=== PATIENT | male | born 1950 | race Caucasian/White ===

== ENCOUNTER 2019-09-13 16:55 | Inpatient (IN) ==
[2019-09-13] MEDS ORDERED: ONDANSETRON INJ 2 MG/ML 2 ML VIAL IV STA (17:23)
[2019-09-13] MEDS ORDERED: KETOROLAC TROMETHAMINE 15 MG/ML VIAL IV STA (17:23)
[2019-09-13] MEDS ORDERED: SODIUM CHLORIDE 0.9% 1000ML 1,000 ML IV ONE (17:23)
[2019-09-13 17:54] LABS: INR 1.1 (0.9-1.1); Partial Thromboplastin Ratio 1.1; Partial Thromboplastin Time 28.8 Seconds (21.0-31.0)
[2019-09-13 17:59] LABS: Alanine Aminotransferase 23 U/L (12-78); Aspartate Aminotransferase 13 U/L (15-37); BUN Creatinine Ratio 16.2 (10-20); Bilirubin Direct < 0.1 mg/dl (0-0.2); Blood Urea Nitrogen 21 mg/dl (7-18); Calcium 9.8 mg/dl (8.5-10.1); Carbon Dioxide 26 mmol/L (21-32); Chloride 105 mmol/L (98-107); Creatinine Clr Calc Pharmacy 56.7 ml/min; Est GFR (African American) 64.4; Est GFR (Non-African American) 55.5; Glucose 124 mg/dl (70-99); Lipase 126 U/L (73-393); Potassium 3.6 mmol/L (3.5-5.1); Sodium 138 mmol/L (136-145)
[2019-09-13 18:00] LABS: Appearance Urine Clear (Clear); Bacteria Urine Automated Negative (Negative); Bilirubin Urine Negative (Negative); Blood Urine 3+ (Negative); Color Urine Yellow; Epithelial Cell Urine Auto 0-5 /lpf (0-5); Glucose Urine UA Negative (Negative); Ketones Urine Negative (Negative); Leukocyte Esterase Urine Negative (Negative); Nitrite Urine Negative (Negative); Protein Urine Negative (Negative); RBC Urine Automated >30 /hpf (0-4); Specific Gravity Urine 1.023 (1.000-1.030); Urobilinogen Urine Negative (Negative)
[2019-09-13 18:01] LABS: Alkaline Phosphatase 96 U/L (45-117); Bilirubin,Total 0.6 mg/dl (0.2-1); Total Protein 7.8 gm/dl (6.4-8.2)
--- NOTE | 2019-09-13 18:12 | CT Scan Report ---
CT abd pelvis wo con CLINICAL HISTORY: 69 years-old Male presenting with R flank pain, concern for kidney stones. TECHNIQUE: Multidetector CT of the abdomen and pelvis was performed without the use of intravenous co ntrast. IV contrast: None. One or more dose lowering techniques were used consistent with the princip les of ALA (as low as reasonably achievable), including automatic exposure control, mA or kV adjust ment to individual patient size, and/or use of iterative reconstruction. COMPARISON: None. CT DOSE (mGy.cm): The estimated cumulative dose is 613.26 mGy.cm. FINDINGS: Nuclear Criticality Safety Engineer topogram: Unremarkable. Lung bases: Normal heart size. Coronary artery calcification. No pericardial or pleural effusion. Min imal dependent changes likely atelectasis. Liver: Normal morphology. Normal density. Well-defined hypodense lesions likely hepatic cysts. Biliary: No gross biliary ductal dilatation allowing for noncontrast technique. Gallbladder contains gallstones. Mild apparent gallbladder wall thickening may in part be due to motion artifact. The gall bladder is not significantly distended. Pancreas: Normal noncontrast appearance. Spleen: Normal noncontrast appearance. Adrenal glands: Normal noncontrast appearance. Kidneys and ureters: Moderate bilateral perinephric fat infiltration. Few parapelvic cysts noted on t he right. Mild right pelviectasis with an extra renal pelvis. Trace right urothelial thickening may b e present. The right ureter is minimally distended in comparison to the left though no calculus is ev ident. Normal noncontrast appearance of the renal parenchyma. No nephrolithiasis or hydronephrosis. Bladder: Circumferential bladder wall thickening. Pelvic organs: Prostate enlargement likely secondary to benign prostatic hyperplasia. Bowel: Diverticulosis of the proximal to mid sigmoid colon as well as the descending colon without wa ll thickening or pericolonic inflammatory change. Scattered colonic diverticula are also noted in the right colon predominantly in the proximal transverse colon. The appendix is not visualized. No bowel obstruction. Peritoneal cavity: No free fluid or intraperitoneal gas. Lymph nodes: No gross lymphadenopathy allowing for noncontrast technique. Vasculature: Atherosclerosis of the normal caliber abdominal aorta. Abdominal wall: Fat-containing left inguinal hernia. Multiple fat-containing ventral hernias along th e lateral margin of a prosthetic mesh prior ventral hernia repair. There is also a fat-containing her sony at the right inferior margin of the prior hernia repair. Musculoskeletal: Normal. IMPRESSION: 1. No nephrolithiasis or hydronephrosis. 2. Subtle urothelial thickening on the right and minimal distention of the right ureter. This could either suggest recent passage of a calculus, reflux uropathy, upper tract infection, or a flaccid león al collecting system. Correlate with urinalysis. 3. Chronic bladder outlet obstruction in the setting of prostatomegaly. 4. Cholelithiasis with apparent gallbladder wall thickening though the appearance may be due to thien on artifact. A right upper quadrant ultrasound is recommended as cholecystitis cannot be excluded. 5. Diverticulosis coli. No diverticulitis. 6. Multiple fat-containing hernias. No evidence of strangulation. The report will be called/faxed according to standard departmental protocol. ACT 112: Negative or not required by law. Electronically signed by: Johnny Delcid M.D. 09/13/2019 6:11 PM
[2019-09-13 18:27] LABS: Basophils # (auto) 0.02 K/uL (0-0.2); Basophils % (auto) 0.2 %; Eosinophils # (auto) 0.06 K/uL (0-0.5); Eosinophils % (auto) 0.5 %; Hematocrit (blood only) 44.5 % (42-52); Hemoglobin 15.4 g/dL (14.0-18.0); Immature Granulocytes # (auto) 0.03 K/uL (0.00-0.02); Immature Granulocytes % (auto) 0.3 %; Lymphocytes # (auto) 0.79 K/uL (1.2-3.4); Mean Corpuscular Hgb Conc 34.6 g/dL (32-36); Mean Corpuscular Volume 89.7 fL (80-100); Mean Platelet Volume 10.1 fL (7.4-10.4); Monocytes # (auto) 0.97 K/uL (0.11-0.59); Monocytes % (auto) 8.6 %; Neutrophils # (auto) 9.39 K/uL (1.4-6.5); Neutrophils % (auto) 83.4 %; Platelet Count 302 K/uL (130-400); RDW Coefficient of Variation 12.2 % (11.5-14.5); RDW Standard Deviation 39.7 fL (36.4-46.3); Red Blood Count 4.96 M/uL (4.7-6.1); White Blood Count 11.26 K/uL (4.8-10.8)
--- NOTE | 2019-09-13 19:16 | Ultrasound Report ---
ULTRASOUND RIGHT UPPER QUADRANT ABDOMEN CLINICAL HISTORY: Right upper quadrant abdominal pain. COMPARISON STUDY: Abdominal CT performed the same day 09/13/2019. TECHNIQUE: Real-time, grayscale, and color flow sonography of the right upper quadrant of the abdomen was performed. Images are reviewed in the transverse and longitudinal planes. FINDINGS: Liver: The liver is normal in size and echotexture. There is no intrahepatic biliary ductal dilatatio n. A 1.8 cm simple cyst is noted in the left lobe. The main portal vein is patent. Gallbladder: There are shadowing calcified gallstones. The gallbladder wall is mildly thickened measu ring up to 4 mm. There is no pericholecystic fluid. A sonographic Wilkes's sign is reportedly absent. The common bile duct measures up to 0.5 cm in diameter. Pancreas: Not visualized due to overlying bowel gas. Right kidney: Survey images of the right kidney demonstrate normal size and echotexture. There is no hydronephrosis. Ascites: None. IMPRESSION: 1. Cholelithiasis with a mildly thickened gallbladder wall. A sonographic Wilkes's sign is reportedly absent and there findings are equivocal for acute cholecystitis. The CT findings remain concerning, and if there is strong clinical concern for acute cholecystitis a nuclear hepatobiliary scan could be considered. 2. There is no intra or extrahepatic biliary ductal dilatation. ACT 112: Negative or not required by law. Electronically signed by: Giovani Gaviria M.D. 09/13/2019 7:14 PM
--- NOTE | 2019-09-13 20:23 | Emergency Department Note ---
Entered by Chani Persaud acting as a scribe for Joshua Brush History of Present Illness General Chief complaint: Flank Pain Stated complaint: FLANK PAIN, NAUSEA Time Seen by Provider: 09/13/19 17:10 Source: patient History of Present Illness Provider complaint: Flank Pain Onset (ago): day(s) 5 Location: abdomen (Lower) and right Maximum Pain Intensity: 8 Relieved By: + none Exacerbated By: + none Associated symptoms: + denies other symptoms (Dysuria, hematuria, diarrhea, melena) and + nausea/vomiting (Positive nausea. Negative vomiting. ) The patient is a 69 year old male who presents to the Emergency Room with complaints of right flank pain that began about 5 days ago. Pain radiates into his right upper and right lower quadrants. The patient states that his pain is not relieved nor exacerbated by anything specific. The patient reports experiencing nausea but denies any vomiting. The patient denies experiencing any dysuria, hematuria, diarrhea, or melena. The patient notes that on Tuesday night he was experiencing cramping of his upper abdomen closer to his chest. The patient also mentioned that he had his appendix removed and has a history of hypertension and hyperlipidemia. Home Medications Home Medications Medication Instructions Recorded Confirmed Type atorvastatin [Lipitor] 20 mg PO HS 09/13/19 09/13/19 History cholecalciferol (vitamin D3) 1,000 unit PO QAM 09/13/19 09/13/19 History [Vitamin D3] lisinopril-hydrochlorothiazide 1 tab PO QAM 09/13/19 09/13/19 History [Zestoretic] Allergies Allergy/AdvReac Type Severity Reaction Status Date / Time No Known Allergies Allergy Unverified 09/13/19 18:14 Past Med/Surg History Medical History Hyperlipidemia Hypertension Surgical History History of appendectomy Family History Other Family history non-contributory Social History Feels Safe at Home: Yes Smoking Status: Never smoker Review of Systems See HPI for pertinent positives & negatives. and A total of 10 systems reviewed and were otherwise negative Physical Exam Vital Signs Vital Signs - 24 hr 09/13/19 17:06 09/13/19 18:05 09/13/19 19:13 Temperature 36.9 C Temperature Source Oral Pulse Rate 89 Pulse Rate [Finger] 78 91 H Respiratory Rate 20 17 18 Respiratory Effort / Characteristics Non-Labored Spontaneous Respiratory Depth Normal Normal Respiratory Pattern Regular Blood Pressure 157/80 H Blood Pressure [Left Arm] 132/68 147/70 H Blood Pressure Mean 105 Blood Pressure Mean [Left Arm] 89 95 Pulse Oximetry 97 95 97 Oxygen Delivery Method Room Air Room Air Room Air Sepsis Recent Fever Within 48 Hours No Sepsis Action Taken by Nursing No Action Required GENERAL: He is oriented to person, place, and time. He appears well-developed and well-nourished. He does not appear distressed. HENT: Exam performed. - Head: Normocephalic and atraumatic. - Right Ear: External ear normal. No mastoid tenderness. - Left Ear: External ear normal. No mastoid tenderness. - Mouth/Throat: The oropharynx is clear and moist. No trismus in the jaw. No dental abscesses or uvula swelling. No oropharyngeal exudate or tonsillar abscesses. EYES: Conjunctivae and EOM are normal. Pupils are equal, round, and reactive to light. Right eye exhibits no discharge. Left eye exhibits no discharge. No scleral icterus. NECK: Normal range of motion. Neck supple. No JVD present. No spinous process tenderness present. No carotid bruit present. No rigidity. No tracheal deviation and normal range of motion present. No Brudzinski's sign and no Kernig's sign noted. CV: Normal rate, regular rhythm, normal heart sounds and intact distal pulses. There is no peripheral edema. Palpable radial pulses bue. PULM/CHEST: Effort normal and breath sounds normal. No respiratory distress. No stridor. He has no wheezes. He has no rales. - Chest Wall: He exhibits no tenderness. ABD: The abdomen is soft. Bowel sounds are normal. He has no distension. No mass is present. Right sided CVA tenderness. There is no rebound, no guarding, no Wilkes's sign and no tenderness at McBurney's point. Rovsig negative. MUSC/SKEL: Normal range of motion. There is no peripheral edema, tenderness or deformity. LYMPH: No cervical adenopathy. NEURO: He is alert and oriented to person, place, and time. He has normal strength. No cranial nerve deficit or sensory deficit. Coordination and gait normal. GCS eye subscore is 4. GCS verbal subscore is 5. GCS motor subscore is 6. Cerebellar tests wnl. SKIN: Skin is warm and dry. He is not diaphoretic. PSYCH: He has a normal mood and affect. Behavior is normal. Judgment and thought content normal. Course Course 1712: Past medical records reviewed. The patient was evaluated in room C07. A complete history and physical exam was performed. 1827: I reevaluated the patient and the patient states that his pain and nausea are gone after receiving IV Toradol and Zofran. Vital signs stable and labs are within normal limits except for 3+ blood in his urine. CT scan of the abdomen/pelvis showed no kidney stones but does show urethral thickening which could represent a passed kidney stone which I believe is the case. CT scan also showed Cholelithiasis and an US was recommended to rule out cholecystitis, which we will do. 1924: Vital signs stable. Patient continues to report no pain. No pain on palpation of the right upper quadrant at this time. Ultrasound is equivocal for acute cholecystitis, HIDA scan was recommended. I spoke with Dr. Jaquez- General Surgery about the patient's case and he agreed to be on consult. He recommends of the patient get a HIDA scan in the morning and someone from his team will evaluate the patient. I spoke with Dr. Ac- Hospitalist about the patient's case and he will accept the patient for further evaluation. Administered Medications Discontinued Medications Sodium Chloride (Nss 1000ml) 1,000 mls @ 999 mls/hr IV .Q1H1M ONE Stop: 09/13/19 18:23 Last Infusion: 09/13/19 18:41 Dose: 0 mls/hr Documented by: [id number] Admin: 09/13/19 17:43 Dose: 999 mls/hr Documented by: [id number] Ketorolac Tromethamine (Toradol) 15 mg IV NOW STA Stop: 09/13/19 17:24 Last Admin: 09/13/19 17:43 Dose: 15 mg Documented by: [id number] Ondansetron HCl (Zofran) 4 mg IV NOW STA Stop: 09/13/19 17:24 Last Admin: 09/13/19 17:43 Dose: 4 mg Documented by: [id number] Medical Decision Making Medical Records Attestation: I reviewed the patient's medical records. Home Medications Current Medication List: was personally reviewed by me Laboratory Data Attestation: I reviewed the patient's lab results. Result diagrams: 09/13/19 17:34 09/13/19 17:34 Lab Results 09/13/19 09/13/19 09/13/19 Range/Units 17:34 17:34 17:34 WBC 11.26 H (4.8-10.8) K/uL RBC 4.96 (4.7-6.1) M/uL Hgb 15.4 (14.0-18.0) g/dL Hct 44.5 (42-52) % MCV 89.7 (80-100) fL MCH 31.0 (25-34) pg MCHC 34.6 (32-36) g/dL RDW Std Deviation 39.7 (36.4-46.3) fL RDW Coeff of Graham 12.2 (11.5-14.5) % Plt Count 302 (130-400) K/uL MPV 10.1 (7.4-10.4) fL Immature Gran % (Auto) 0.3 % Neut % (Auto) 83.4 % Lymph % (Auto) 7.0 % Cuming % (Auto) 8.6 % Eos % (Auto) 0.5 % Baso % (Auto) 0.2 % Immature Gran # (Auto) 0.03 H (0.00-0.02) K/uL Neut # (Auto) 9.39 H (1.4-6.5) K/uL Lymph # (Auto) 0.79 L (1.2-3.4) K/uL Cuming # (Auto) 0.97 H (0.11-0.59) K/uL Eos # (Auto) 0.06 (0-0.5) K/uL Baso # (Auto) 0.02 (0-0.2) K/uL PT 11.0 (9.0-12.0) Seconds INR 1.1 (0.9-1.1) APTT 28.8 (21.0-31.0) Seconds PTT Ratio 1.1 Sodium 138 (136-145) mmol/L Potassium 3.6 (3.5-5.1) mmol/L Chloride 105 (98-107) mmol/L Carbon Dioxide 26 (21-32) mmol/L Anion Gap 7.0 (3-11) BUN 21 H (7-18) mg/dl Creatinine 1.31 (0.6-1.4) mg/dl Est Cr Clr Drug Dosing 56.7 ml/min Est GFR ( Amer) 64.4 Est GFR (Non-Af Amer) 55.5 BUN/Creatinine Ratio 16.2 (10-20) Glucose 124 H (70-99) mg/dl Calcium 9.8 (8.5-10.1) mg/dl Total Bilirubin 0.6 (0.2-1) mg/dl Direct Bilirubin < 0.1 (0-0.2) mg/dl AST 13 L (15-37) U/L ALT 23 (12-78) U/L Alkaline Phosphatase 96 (45-117) U/L Total Protein 7.8 (6.4-8.2) gm/dl Albumin 4.0 (3.4-5.0) gm/dl Lipase 126 (73-393) U/L Urine Color Urine Appearance (Clear) Urine pH (4.5-7.5) Ur Specific Pe[place] (1.000-1.030) Urine Protein (Negative) Urine Glucose (UA) (Negative) Urine Ketones (Negative) Urine Blood (Negative) Urine Nitrite (Negative) Urine Bilirubin (Negative) Urine Urobilinogen (Negative) Ur Leukocyte Esterase (Negative) Urine WBC (Auto) (0-5) /hpf Urine RBC (Auto) (0-4) /hpf U Hyaline Cast (Auto) (0-5) /lpf U Epithel Cells (Auto) (0-5) /lpf Urine Bacteria (Auto) (Negative) 09/13/19 Range/Units 17:34 WBC (4.8-10.8) K/uL RBC (4.7-6.1) M/uL Hgb (14.0-18.0) g/dL Hct (42-52) % MCV (80-100) fL MCH (25-34) pg MCHC (32-36) g/dL RDW Std Deviation (36.4-46.3) fL RDW Coeff of Graham (11.5-14.5) % Plt Count (130-400) K/uL MPV (7.4-10.4) fL Immature Gran % (Auto) % Neut % (Auto) % Lymph % (Auto) % Cuming % (Auto) % Eos % (Auto) % Baso % (Auto) % Immature Gran # (Auto) (0.00-0.02) K/uL Neut # (Auto) (1.4-6.5) K/uL Lymph # (Auto) (1.2-3.4) K/uL Cuming # (Auto) (0.11-0.59) K/uL Eos # (Auto) (0-0.5) K/uL Baso # (Auto) (0-0.2) K/uL PT (9.0-12.0) Seconds INR (0.9-1.1) APTT (21.0-31.0) Seconds PTT Ratio Sodium (136-145) mmol/L Potassium (3.5-5.1) mmol/L Chloride (98-107) mmol/L Carbon Dioxide (21-32) mmol/L Anion Gap (3-11) BUN (7-18) mg/dl Creatinine (0.6-1.4) mg/dl Est Cr Clr Drug Dosing ml/min Est GFR ( Amer) Est GFR (Non-Af Amer) BUN/Creatinine Ratio (10-20) Glucose (70-99) mg/dl Calcium (8.5-10.1) mg/dl Total Bilirubin (0.2-1) mg/dl Direct Bilirubin (0-0.2) mg/dl AST (15-37) U/L ALT (12-78) U/L Alkaline Phosphatase (45-117) U/L Total Protein (6.4-8.2) gm/dl Albumin (3.4-5.0) gm/dl Lipase (73-393) U/L Urine Color Yellow Urine Appearance Clear (Clear) Urine pH 5.0 (4.5-7.5) Ur Specific Peoa 1.023 (1.000-1.030) Urine Protein Negative (Negative) Urine Glucose (UA) Negative (Negative) Urine Ketones Negative (Negative) Urine Blood 3+ H (Negative) Urine Nitrite Negative (Negative) Urine Bilirubin Negative (Negative) Urine Urobilinogen Negative (Negative) Ur Leukocyte Esterase Negative (Negative) Urine WBC (Auto) 1-5 (0-5) /hpf Urine RBC (Auto) >30 H (0-4) /hpf U Hyaline Cast (Auto) 1-5 (0-5) /lpf U Epithel Cells (Auto) 0-5 (0-5) /lpf Urine Bacteria (Auto) Negative (Negative) Imaging Data Radiologist's Impression: Radiology results as stated below per my review and the radiologist's interpretation: CT abd pelvis wo con CLINICAL HISTORY: 69 years-old Male presenting with R flank pain, concern for kidney stones. TECHNIQUE: Multidetector CT of the abdomen and pelvis was performed without the use of intravenous contrast. IV contrast: None. One or more dose lowering techniques were used consistent with the principles of ALARA (as low as reasonably achievable), including automatic exposure control, mA or kV adjustmen t to individual patient size, and/or use of iterative reconstruction. COMPARISON: None. CT DOSE (mGy.cm): The estimated cumulative dose is 613.26 mGy.cm. FINDINGS: Laborer Plumbing topogram: Unremarkable. Lung bases: Normal heart size. Coronary artery calcification. No pericardial or pleural effusion. Minimal dependent changes likely atelectasis. Liver: Normal morphology. Normal density. Well-defined hypodense lesions likely hepatic cysts. Biliary: No gross biliary ductal dilatation allowing for noncontrast technique. Gallbladder contains gallstones. Mild apparent gallbladder wall thickening may i n part be due to motion artifact. The gallbladder is not significantly distended. Pancreas: Normal noncontrast appearance. Spleen: Normal noncontrast appearance. Adrenal glands: Normal noncontrast appearance. Kidneys and ureters: Moderate bilateral perinephric fat infiltration. Few parapelvic cysts noted on the right. Mild right pelviectasis with an extra renal pelvis. Trace right urothelial thickening may be present. The right ureter is minimally distended in comparison to the left though no calculus is evident. Normal noncontrast appearance of the renal parenchyma. No nephrolithiasis or hydronephrosis. Bladder: Circumferential bladder wall thickening. Pelvic organs: Prostate enlargement likely secondary to benign prostatic hyperplasia. Bowel: Diverticulosis of the proximal to mid sigmoid colon as well as the descending colon without wall thickening or pericolonic inflammatory change. Scattered colonic diverticula are also noted in the right colon predominantly in the proximal transverse colon. The appendix is not visualized. No bowel obstruction. Peritoneal cavity: No free fluid or intraperitoneal gas. Lymph nodes: No gross lymphadenopathy allowing for noncontrast technique. Vasculature: Atherosclerosis of the normal caliber abdominal aorta. Abdominal wall: Fat-containing left inguinal hernia. Multiple fat-containing ventral hernias along the lateral margin of a prosthetic mesh prior ventral hernia repair. There is also a fat-containing hernia at the right inferior margin of the prior hernia repair. Musculoskeletal: Normal. IMPRESSION: 1. No nephrolithiasis or hydronephrosis. 2. Subtle urothelial thickening on the right and minimal distention of the righ t ureter. This could either suggest recent passage of a calculus, reflux uropathy, upper tract infection, or a flaccid renal collecting system. Correlate with urinalysis. 3. Chronic bladder outlet obstruction in the setting of prostatomegaly. 4. Cholelithiasis with apparent gallbladder wall thickening though the appearance may be due to motion artifact. A right upper quadrant ultrasound is recommended as cholecystitis cannot be excluded. 5. Diverticulosis coli. No diverticulitis. 6. Multiple fat-containing hernias. No evidence of strangulation. The report will be called/faxed according to standard departmental protocol. ACT 112: Negative or not required by law. Electronically signed by: Johnny Delcid M.D. 09/13/2019 6:11 PM ULTRASOUND RIGHT UPPER QUADRANT ABDOMEN CLINICAL HISTORY: Right upper quadrant abdominal pain. COMPARISON STUDY: Abdominal CT performed the same day 09/13/2019. TECHNIQUE: Real-time, grayscale, and color flow sonography of the right upper quadrant of the abdomen was performed. Images are reviewed in the transverse and longitudinal planes. FINDINGS: Liver: The liver is normal in size and echotexture. There is no intrahepatic biliary ductal dilatation. A 1.8 cm simple cyst is noted in the left lobe. The m n portal vein is patent. Gallbladder: There are shadowing calcified gallstones. The gallbladder wall is mildly thickened measuring up to 4 mm. There is no pericholecystic fluid. A sonographic Wilkes's sign is reportedly absent. The common bile duct measures up to 0.5 cm in diameter. Pancreas: Not visualized due to overlying bowel gas. Right kidney: Survey images of the right kidney demonstrate normal size and echotexture. There is no hydronephrosis. Ascites: None. IMPRESSION: 1. Cholelithiasis with a mildly thickened gallbladder wall. A sonographic Wilkes's sign is reportedly absent and there findings are equivocal for acute cholecystitis. The CT findings remain concerning, and if there is strong clinical concern for acute cholecystitis a nuclear hepatobiliary scan could be considered. 2. There is no intra or extrahepatic biliary ductal dilatation. ACT 112: Negative or not required by law. Electronically signed by: Giovani Gaviria M.D. 09/13/2019 7:14 PM Blood Pressure Blood Pressure Findings: Elevated blood pressure Blood Pressure Disposition: further management by hospitalist [facility] Narrative 171: Past medical records reviewed. The patient was evaluated in room C07. A complete history and physical exam was performed. 182: I reevaluated the patient and the patient states that his pain and nausea are gone after receiving IV Toradol and Zofran. Vital signs stable and labs are within normal limits except for 3+ blood in his urine. CT scan of the abdomen/pelvis showed no kidney stones but does show urethral thickening which could represent a passed kidney stone which I believe is the case. CT scan also showed Cholelithiasis and an US was recommended to rule out cholecystitis, which we will do. 1924: Vital signs stable. Patient continues to report no pain. No pain on palpation of the right upper quadrant at this time. Ultrasound is equivocal for acute cholecystitis, HIDA scan was recommended. I spoke with Dr. Jaquez- General Surgery about the patient's case and he agreed to be on consult. He recommends of the patient get a HIDA scan in the morning and someone from his team will evaluate the patient. I spoke with Dr. Ac- [facility] about the patient's case and he will accept the patient for further evaluation. Impression & Plan Cholelithiasis Discharge Plan Visit Data Chief Complaint: Flank Pain Stated Complaint: FLANK PAIN, NAUSEA ED Provider: Joshua Brush Discharge Problem: Cholelithiasis Forms Stand Alone Forms: [email or web address] Prescriptions Prescriptions: No Action atorvastatin [Lipitor] 20 mg tablet 20 mg PO HS RF: 0 lisinopril-hydrochlorothiazide [Zestoretic] 10-12.5 mg tablet 1 tab PO QAM RF: 0 cholecalciferol (vitamin D3) [Vitamin D3] 25 mcg (1,000 unit) Tablet 1,000 unit PO QAM RF: 0 Discharge Problem: Cholelithiasis Qualifiers: Cholelithiasis location: other site Biliary obstruction: without biliary obstruction Qualified Code(s): K80.80 - Other cholelithiasis without obstruction The scribe's documentation has been prepared under my direction and personally reviewed by me in its entirety. I confirm that the note above accurately reflects all work, treatment, procedures, and medical decision making performed by me.
[2019-09-13] MEDS ORDERED: ACETAMINOPHEN 325 MG TAB PO PRN (23:11)
--- NOTE | 2019-09-14 00:22 | History and Physical Report ---
DATE OF ADMISSION: 09/13/2019 CHIEF COMPLAINT: Abdominal pain and flank pain. HISTORY OF PRESENT ILLNESS: This is a 69-year-old male with past medical history significant for hypertension, hyperlipidemia, internal hemorrhoids, history of vitamin D deficiency, anal fissures, who presents with abdominal pain and right flank pain. The patient sayson Tuesday night, he had upper abdominal cramps, started midnight, and could not sleep, lasted until 4:00 a.m. Again on Tuesday night, he had same issue and he did not go to work on Tuesday and today in the evening, the pain started in the right flank region radiating to groins, 8/10 in severity. He has a history of ruptured appendicitis 19 years ago, he felt like similar kind of pain which prompted him to come to the ER. In the ER, CAT scan of abdomen and pelvis was done which showed possible passage of calculus and also showed chronic bladder outlet obstruction in the setting of prostatomegaly and also showed cholelithiasis and apparent gallbladder wall thickening. Gallbladder ultrasound was also done, it shows mildly thickened gallbladder wall, but sonographic Wilkes sign is absent. Recommend nuclear hepatobiliary scan. The patient, after giving Toradol, his pain is resolved. Resting comfortably and hemodynamically stable. Earlier he had nausea, but he is doing okay now. His appetite is not that great the last few days because of ongoing symptoms. He thinks the pain might be associated with fatty food. Denies any burning micturition or blood in the urine. He gets on and off constipation and diarrhea, and it resolves by its own. Denies any black stools or blood in the stool. He says if he walks fast, he gets short of breath at times he feels mild chest discomfort and that resolves with rest. He had stress test several years back and was unremarkable. Denies any cough, no fever, no chills. No dysphagia or odynophagia. The last few days, he has some mild headache in the right temporal region. He has issues with vision and follows with eye doctor. No earache, no runny nose, no sore throat. Occasional dry cough. Currently resting comfortably and hemodynamically stable. He is also having issues with right shoulder, thought to be tendinitis and treated with ibuprofen three times daily for 10 days about 2 weeks ago and few days back also he had a dose of ibuprofen. He still has the pain in the right shoulder. He is also having dry skin and itching and has an appointment with Dermatology coming October. ALLERGIES: No known drug allergies. PAST MEDICAL HISTORY: As mentioned above. PAST SURGICAL HISTORY: Colonoscopy, appendectomy, ventral hernia repair. MEDICATIONS: The patient is on atorvastatin 20 mg at p.o. bedtime, vitamin D 1000 units q.a.m., lisinopril and hydrochlorothiazide 10/12.5 one tablet daily, meclizine p.r.n. FAMILY HISTORY: No family history in file. SOCIAL HISTORY: . No smoking, alcohol rare. No drug use. REVIEW OF SYSTEMS: As per HPI. Rest of the review of systems negative. PHYSICAL EXAMINATION: GENERAL: The patient is of moderate build, not in acute distress. VITAL SIGNS: Temperature 36.9, pulse 91, respiratory rate 18, blood pressure 147/70, oxygen 97% on room air. HEENT: No pallor, no icterus. Pupils equal, round, and reactive to light. NECK: No JVD, no neck masses, no carotid bruits. CARDIOVASCULAR: S1, S2 heard, regular rate and rhythm, no murmur, no gallop. RESPIRATORY SYSTEM: Normal AP diameter. No accessory muscle use. No wheezing, no crackles. ABDOMEN: Soft, bowel sounds present. Mild right upper quadrant tenderness. No guarding, no rigidity, no distention. CENTRAL NERVOUS SYSTEM: Cranial nerves II-XII grossly intact, nonfocal. EXTREMITIES: No edema, no erythema. LABORATORY DATA: WBC 11.2, hemoglobin 15.4, hematocrit 44.5, platelets 302. PT 11, INR 1.1, APTT 28.8. Sodium 138, potassium 3.6, chloride 105, bicarbonate 26, BUN 21, creatinine 1.3, serum glucose 124, calcium 9.8, total bilirubin 0.6, direct bilirubin less than 0.1, AST 13, ALT 23, alkaline phosphatase 96, lipase 126. Urinalysis, +3 blood. IMAGING DATA: CT of the abdomen and pelvis, no nephrolithiasis or hydronephrosis. Subtle urothelial thickening on the right and minimal distention of the right ureter. This could either suggest recent passage of a calculus, reflux uropathy, upper tract infection, or flaccid renal collecting system. Correlate with urinalysis. Chronic bladder outlet obstruction in the setting of prostatomegaly. Cholelithiasis, apparent gallbladder wall thickening, though the appearance may be due to motion artifact. Right upper quadrant ultrasound is recommended as cholecystitis cannot be excluded. Diverticulosis coli, no diverticulitis, multiple fat-containing hernias. No evidence of strangulation. Gallbladder ultrasound, cholelithiasis with a mildly thickened gallbladder wall. A sonographic Wilkes's sign is reportedly absent and their findings are equivocal for acute cholecystitis. A nuclear hepatobiliary scan could be considered. There is no intrahepatic or extrahepatic biliary ductal dilatation. ASSESSMENT AND PLAN: This is a 69-year-old male who presents with abdominal pain and also right flank pain. 1. Abdominal pain. Two episodes on last Tuesday and Tuesday night in upper abdomen and two day in right flank region.. Could be gallbladder colic or cholecystitis as per CAT scan and gallbladder ultrasound findings. We will do HIDA scan for confirmation. Could be also gastritis because of recent use of ibuprofen for his right shoulder tendinitis. We will place him on IV Pepcid 20 mg b.i.d. We will keep him n.p.o., IV fluids. Currently pain is resolved. We will monitor on the medical floor and consult surgery for further recommendations. 2. Possible passage of kidney stone as per CAT scan results and also chronic bladder outlet obstruction secondary to prostatomegaly and has microscopic hematuria. Will consult urology while the patient is in the hospital for further recommendations. 3. Hypertension. Continue his home medications of lisinopril/hydrochlorothiazide. 4. Hyperlipidemia. Continue statin. 5. SOB on exertion And also says mild chest discomfort if walks fast. Will get ekg an cxr. Needs followup. May need stress test. 6. Deep vein thrombosis prophylaxis, sequential compression devices. DISPOSITION: Admit to medical floor. Expect to discharge home and follow with family doctor. Level 1 full code. MTDD
[2019-09-14] MEDS: D5W AND NSS 1,000 ML IV SCH ×3 (00:30→16:25)
[2019-09-14] MEDS: FAMOTIDINE 20 MG in SYRINGE 3 ML IV SCH ×3 (00:30→21:25)
[2019-09-14 05:22] LABS: Basophils # (auto) 0.03 K/uL (0-0.2); Basophils % (auto) 0.4 %; Eosinophils # (auto) 0.15 K/uL (0-0.5); Eosinophils % (auto) 1.9 %; Hematocrit (blood only) 41.9 % (42-52); Hemoglobin 13.9 g/dL (14.0-18.0); Immature Granulocytes # (auto) 0.02 K/uL (0.00-0.02); Immature Granulocytes % (auto) 0.3 %; Lymphocytes # (auto) 1.49 K/uL (1.2-3.4); Lymphocytes % (auto) 18.9 %; Mean Corpuscular Hemoglobin 30.3 pg (25-34); Mean Corpuscular Hgb Conc 33.2 g/dL (32-36); Mean Corpuscular Volume 91.3 fL (80-100); Mean Platelet Volume 9.9 fL (7.4-10.4); Monocytes # (auto) 1.08 K/uL (0.11-0.59); Monocytes % (auto) 13.7 %; Neutrophils # (auto) 5.13 K/uL (1.4-6.5); Neutrophils % (auto) 64.8 %; Platelet Count 244 K/uL (130-400); RDW Coefficient of Variation 12.5 % (11.5-14.5); RDW Standard Deviation 41.9 fL (36.4-46.3); Red Blood Count 4.59 M/uL (4.7-6.1)
[2019-09-14 05:51] LABS: BUN Creatinine Ratio 18.9 (10-20); Calcium 8.5 mg/dl (8.5-10.1); Creatinine Clr Calc Pharmacy 68.4 ml/min; Est GFR (African American) 89.2; Potassium 3.8 mmol/L (3.5-5.1)
[2019-09-14 06:04] LABS: Alanine Aminotransferase 19 U/L (12-78); Alkaline Phosphatase 77 U/L (45-117); Aspartate Aminotransferase 12 U/L (15-37); Bilirubin Direct < 0.1 mg/dl (0-0.2); Bilirubin,Total 0.7 mg/dl (0.2-1); Total Protein 6.3 gm/dl (6.4-8.2)
--- NOTE | 2019-09-14 07:41 | XRay Report ---
XR chest 1V portable HISTORY: 69 years-old Male sob on exertion acute shortness of breath COMPARISON: CT abdomen and pelvis 09/13/2019 TECHNIQUE: Portable AP view of the chest FINDINGS: Cardiomediastinal and hilar silhouettes are within normal limits. There is no pneumothorax, pleural e ffusion, focal airspace consolidation or overt pulmonary edema. Convex right curvature of the midthor acic spine. Degenerative changes of the shoulders and spine are noted. IMPRESSION: No acute process. ACT 112: Negative or not required by law. The above report was generated using voice recognition software. It may contain grammatical, syntax o r spelling errors. Electronically signed by: Jose Powell M.D. 09/14/2019 7:40 AM
[2019-09-14] MEDS: CHOLECALCIFEROL 1,000 UNITS 25 MCG TAB PO SCH (09:03)
[2019-09-14] MEDS: LISINOPRIL/HCTZ 10/12.5MG TAB PO SCH (09:03)
--- NOTE | 2019-09-14 09:26 | Urology Consultation ---
Date of Consultation September 14, 2019 Assessment & Plan (1) Right flank pain: (2) Microscopic hematuria: 69yo M admitted with R flank pain, nausea, found to have microscopic hematuria, slightly dilated right ureter; possible cholelithiasis. General Surgery also consulted to assist in care, pt is NPO for HIDA scan today. Will send urine cytology today to screen for high grade urothelial carcinoma. Discussed possible etiologies for right flank pain, including possible stone passage. No indication for surgical intervention at this time. Pt is understanding of careplan. Will arrange followup to monitor hematuria, consider outpatient workup. Thank you for allowing us to participate in the acute care of Mr. Galan. Please reconsult us with additional questions, concerns or changes in patient status. History of Present Illness Reason for Consultation: hematuria, CT Requesting Physician: Dr. Davidson Attending Physician: Jarret Davidson MD History of Present Illness 69yo M with PMHx HTN, HLD, hemorrhoids, fissures, presents with abdominal and right flank pain. Started with upper abdominal cramps associated with fatty food consumption. Last evening he then developed right flank pain radiating to his groin, rating 8/10 in severity with nausea which prompted ER evaluation. CT imaging reveals slight thickening of right ureter, no stones or hydronephrosis. Chronic [place] with enlarged prostate noted. Cholelithiasis also noted. Toradol resolved pain in ER, pt is now pain free. Afebrile, nontoxic appearing. Pt states he feels better, voiding spontaneously. Labs reviewed - hgb 15.4, creatinine 1.3 UA >30 RBC, not suspicious for UTI. No previous urology evaluation. Nocturia x1 Denies dysuria, gross hematuria. No family or personal hx of prostate, kidney or bladder cancer. Unsure of past PSA, states his primary care checks labs annually but unsure if PSA included. Allergies Allergy/AdvReac Type Severity Reaction Status Date / Time No Known Allergies Allergy Unverified 09/13/19 18:14 Home Medications Home Medications Medication Instructions Recorded Confirmed Type atorvastatin [Lipitor] 20 mg PO HS 09/13/19 09/13/19 History cholecalciferol (vitamin D3) 1,000 unit PO QAM 09/13/19 09/13/19 History [Vitamin D3] lisinopril-hydrochlorothiazide 1 tab PO QAM 09/13/19 09/13/19 History [Zestoretic] Patient History Medical History Hyperlipidemia Hypertension Surgical History History of appendectomy Family History Other Family history non-contributory Social History Preferred Language: Marshallese Retail 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 Beliefs That Will Affect Care: None Current Living Situation: Spouse Other Information That Helps Us Care for You: No Feels Safe at Home: Yes Safety Concerns: Feels Safe At This Time Smoking Status: Never smoker Hx Alcohol Use: Yes Alcohol type: beer Hx Substance Use: No Review of Systems Review of Systems: Constitutional: Denies fever, chills, sweats, malaise Eyes: Denies problem reported ENMT: Denies dizziness Resp: Denies cough, Denies shortness of breath CV: Denies JVD GI: Denies nausea/vomiting : Denies suprapubic or flank pain, dysuria, urgency, frequency, hematuria MS: Denies swelling, stiffness Integ: Denies rash, erythema Neuro: Denies falls, weakness Psych: Denies behavior change Endo: Denies polyphagia, polydipsia Heme: Denies easy bleeding Physical Exam Constitutional: well groomed and comfortable; no acute distress and not ill appearing Eyes: no nystagmus ENMT: Ears: no hearing impairment Neck: trachea midline Respiratory: no respiratory distress and no cough Cardiovascular: Vessels: no JVD Chest (Breasts): Chest: normal inspection of chest Gastrointestinal (Abdomen): Inspection/Auscultation: abdomen not distended and no abdominal edema Percussion/Palpation: abdomen soft; abdomen nontender Musculoskeletal: Head/Neck/Chest: normocephalic and head atraumatic Skin: no rashes, warm and dry Neurologic: awake; not confused and not obtunded Psychiatric: Orientation: alert and oriented x 3 Eye Contact: good eye contact Affect: no depressed affect Genitourinary: bladder normal to inspection; no CVA tenderness Lymphatic: no lymphadenopathy and no lymphedema Results & Data Vital Signs (Past 12 Hours) Vital Signs Temp Pulse Resp BP BP Pulse Ox 09/14/19 07:16 36.9 C 63 20 110/66 94 09/13/19 22:59 36.8 C 65 16 149/76 H 92 PG Care Time/CCT Total # of Minutes Spent Total Time Spent with Patient: Total time spent is greater than 50% in coordination of care (as documented) at patient's floor/unit and/or counseling patient: Coding Level of Care Code 89552 Inpt Consult Level 3 Diagnoses Right flank pain R10.9 Microscopic hematuria R31.29
[2019-09-14] MEDS ORDERED: MoRPHine SULFATE 2 MG/ML CARP ONE (13:03)
--- NOTE | 2019-09-14 13:28 | Surgery Consultation ---
Date of Consultation September 14, 2019 Assessment & Plan (1) Cholelithiasis: This is a 69y M who presents to the [facility] on 09/13 with complaints of ... Patient underwent a CT scan showing cholelithiasis & gallbladder wall thickening and RUQ US confirmed the presence of gallstones with mild thickening of the gb wall findings equivocal for acute cholecystitis. A HIDA was performed for further evaluation with findings concerning for cystic duct obstruction secondary to acute cholecystitis. Today patient's LFTs are tbili:0.7, AST: 12, ALT: 19, AlkP:77 and a WBC of 7.9. Patient's vital signs stable and he is currently afebrile. Of note patient's CT scan also revealed multiple fat-containing ventral hernias as well as prosthetic mesh in place from a prior ventral hernia repair. Plan for laparoscopic cholecystectomy with possible cholangiogram tomorrow in the operating room Patient may have clear liquids, n.p.o. after midnight Preop antibiotics ordered for tomorrow morning The risks the procedure were discussed to include but not limited to bleeding, infection, retained stone, bile leak, damage surrounding structures including common bile duct, conversion to open, need for future more extensive surgery, failure to treat all of his symptoms, and the risk of anesthesia He understands that he is at increased risk based on his prior surgical history and recurrent hernia Discussed with medicine service, appreciate their management of this patient History of Present Illness Attending Physician: Jarret Davidson MD History of Present Illness 69-year-old male admitted with upper abdominal pain. He has been having indigestion over the past few months, especially after fatty or greasy meals. Over the past week he has noticed significant episodes of increased upper abdominal pain radiating to his chest and right flank. These have occurred after fatty meals. Yesterday he ate half a hot dog and immediately started having upper and lower abdominal discomfort with nausea. He came into the emergency room and after getting Toradol and Zofran his pain is largely resolved. He had a CT scan without contrast due to concern for possible kidney stone that showed a dilated ureter, he also had some microhematuria. They saw gallstones as well as a possible thickened gallbladder wall but no secondary signs of inflammation. A right upper quadrant ultrasound was performed which showed gallstones and borderline gallbladder thickness at 4 mm, but no pericholecystic fluid and negative sonographic Wilkes sign. It was discussed with general surgery overnight and they recommend admission with a HIDA scan. The patient had a HIDA scan this morning and showed nonfilling of the gallbladder. He has had perforated appendicitis which required a laparotomy 19 years ago. He then had an incisional hernia that was repaired with a large piece of mesh in an open fashion a year after that. He does have a recurrence around his mesh in several locations not containing any bowel. Right now he feels well, is otherwise healthy, and denies any blood thinners. Allergies Allergy/AdvReac Type Severity Reaction Status Date / Time No Known Allergies Allergy Unverified 09/13/19 18:14 Home Medications Home Medications Medication Instructions Recorded Confirmed Type atorvastatin [Lipitor] 20 mg PO HS 09/13/19 09/13/19 History cholecalciferol (vitamin D3) 1,000 unit PO QAM 09/13/19 09/13/19 History [Vitamin D3] lisinopril-hydrochlorothiazide 1 tab PO QAM 09/13/19 09/13/19 History [Zestoretic] Patient History Medical History Hyperlipidemia Hypertension Surgical History History of appendectomy Family History Other Family history non-contributory Social History Preferred Language: Sami Communication Ability: Effective Laborer High Density Press Required: No Beliefs That Will Affect Care: None marital status: Current Living Situation: Spouse Other Information That Helps Us Care for You: No Feels Safe at Home: Yes Safety Concerns: Feels Safe At This Time Smoking Status: Never smoker Hx Alcohol Use: Yes Alcohol type: beer Hx Substance Use: No Review of Systems Review of Systems: All systems reviewed & are unremarkable except as noted in HPI & below Physical Exam Constitutional: WD/WN, vitals as above Eyes: PERRL, conjunctivae normal, anicteric sclerae ENMT: external ear and nose normal, oropharynx normal Neck: trachea midline, no thyromegaly Respiratory: normal respiratory effort, lungs clear to auscultation Cardiovascular: RRR, no murmur, no edema Gastrointestinal (Abdomen): Inspection/Auscultation: + abdominal surgical scar Percussion/Palpation: + abdomen tender (Mild tenderness to palpation in the right upper quadrant), abdomen soft and + hernia (Recurrence of his incisional hernia to the left of midline at the level of his umbilicus.); no guarding and abdomen not rigid Musculoskeletal: no cyanosis or clubbing, extremities motor strength 5/5 Skin: no rashes, warm and dry Neurologic: PERRL, EOMI, accommodation nl, no face palsy, no dysarthria Psychiatric: A+Ox3, euthymic affect Lymphatic: no cervical or axillary lymphadenopathy Results & Data Vital Signs (Past 12 Hours) Vital Signs Temp Pulse Resp BP Pulse Ox 09/14/19 07:16 36.9 C 63 20 110/[address] abd pelvis wo con CLINICAL HISTORY: 69 years-old Male presenting with R flank pain, concern for kidney stones. TECHNIQUE: Multidetector CT of the abdomen and pelvis was performed without the use of intravenous contrast. IV contrast: None. One or more dose lowering techniques were used consistent with the principles of ALARA (as low as reas onably achievable), including automatic exposure control, mA or kV adjustment to individual patient size, and/or use of iterative reconstruction. COMPARISON: None. CT DOSE (mGy.cm): The estimated cumulative dose is 613.26 mGy.cm. FINDINGS: Receiver Bulk System topogram: Unremarkable. Lung bases: Normal heart size. Coronary artery calcification. No pericardial or pleural effusion. Minimal dependent changes likely atelectasis. Liver: Normal morphology. Normal density. Well-defined hypodense lesions likely hepatic cysts. Biliary: No gross biliary ductal dilatation allowing for noncontrast technique. Gallbladder contains gallstones. Mild apparent gallbladder wall thickening may in part be due to motion artifact. The gallbladder is not significantly distended. Pancreas: Normal noncontrast appearance. Spleen: Normal noncontrast appearance. Adrenal glands: Normal noncontrast appearance. Kidneys and ureters: Moderate bilateral perinephric fat infiltration. Few parapelvic cysts noted on the right. Mild right pelviectasis with an extra renal pelvis. Trace right urothelial thickening may be present. The right ureter is minimally distended in comparison to the left though no calculus is evident. N ormal noncontrast appearance of the renal parenchyma. No nephrolithiasis or hydronephrosis. Bladder: Circumferential bladder wall thickening. Pelvic organs: Prostate enlargement likely secondary to benign prostatic hyperplasia. Bowel: Diverticulosis of the proximal to mid sigmoid colon as well as the descending colon without wall thickening or pericolonic inflammatory change. Scattered colonic diverticula are also noted in the right colon predominantly in the proximal transverse colon. The appendix is not visualized. No bowel obstruction. Peritoneal cavity: No free fluid or intraperitoneal gas. Lymph nodes: No gross lymphadenopathy allowing for noncontrast technique. Vasculature: Atherosclerosis of the normal caliber abdominal aorta. Abdominal wall: Fat-containing left inguinal hernia. Multiple fat-containing ventral hernias along the lateral margin of a prosthetic mesh prior ventral hernia repair. There is also a fat-containing hernia at the right inferior margin of the prior hernia repair. Musculoskeletal: Normal. IMPRESSION: 1. No nephrolithiasis or hydronephrosis. 2. Subtle urothelial thickening on the right and minimal distention of the right ureter. This could either suggest recent passage of a calculus, reflux uropathy, upper tract infection, or a flaccid renal collecting system. Correlate with urinalysis. 3. Chronic bladder outlet obstruction in the setting of prostatomegaly. 4. Cholelithiasis with apparent gallbladder wall thickening though the appearance may be due to motion artifact. A right upper quadrant ultrasound is recommended as cholecystitis cannot be excluded. 5. Diverticulosis coli. No diverticulitis. 6. Multiple fat-containing hernias. No evidence of strangulation. The report will be called/faxed according to standard departmental protocol. ACT 112: Negative or not required by law. Electronically signed by: Johnny Delcid M.D. 09/13/2019 6:11 PM ULTRASOUND RIGHT UPPER QUADRANT ABDOMEN CLINICAL HISTORY: Right upper quadrant abdominal pain. COMPARISON STUDY: Abdominal CT performed the same day 09/13/2019. TECHNIQUE: Real-time, grayscale, and color flow sonography of the right upper quadrant of the abdomen was performed. Images are reviewed in the transverse and longitudinal planes. FINDINGS: Liver: The liver is normal in size and echotexture. There is no intrahepatic biliary ductal dilatation. A 1.8 cm simple cyst is noted in the left lobe. The main portal vein is patent. Gallbladder: There are shadowing calcified gallstones. The gallbladder wall is mildly thickened measuring up to 4 mm. There is no pericholecystic fluid. A sonographic Wilkes's sign is reportedly absent. The common bile duct measures up to 0.5 cm in diameter. Pancreas: Not visualized due to overlying bowel gas. Right kidney: Survey images of the right kidney demonstrate normal size and echotexture. There is no hydronephrosis. Ascites: None. IMPRESSION: 1. Cholelithiasis with a mildly thickened gallbladder wall. A sonographic Wilkes's sign is reportedly absent and there findings are equivocal for acute cholecystitis. The CT findings remain concerning, and if there is strong clinical concern for acute cholecystitis a nuclear hepatobiliary scan could be considered. 2. There is no intra or extrahepatic biliary ductal dilatation. ACT 112: Negative or not required by law. Electronically signed by: Giovani Gaviria M.D. 09/13/2019 7:14 PM NM hepatobiliary EF CLINICAL HISTORY: 69 years-old Male with cholecystitis?. Acute right upper quadrant abdominal pain TECHNIQUE: Following the intravenous administration of 5.6 mCi of technetium- 99m Choletec, sequential abdominal images were obtained. COMPARISON: CT abdomen and pelvis 09/13/2019 FINDINGS: There is prompt, uniform accumulation of the tracer by the liver. There is normal filling of the intrahepatic ducts, and common bile duct with normal excretion of the tracer into the duodenum. At 60 minutes, the gallbladder is not identified. 2 mg morphine sulfate given intravenously was then administered to the patient. Moderate enterogastric reflux is not appreciated. Correlate images were obtained through 100 minutes there is progression of tracer into the bowel with nonvisualization of the gallbladder. IMPRESSION: 1. Findings compatible with cystic duct obstruction likely secondary to acute cholecystitis. Surgical consultation advised. 2. No evidence of common bile duct obstruction. 3. Moderate enterogastric reflux. ACT 112: Negative or not required by law. The above report was generated using voice recognition software. It may contain grammatical, syntax or spelling errors. Electronically signed by: Jose Powell M.D. 09/14/2019 1:45 PM PG Care Time/CCT Total # of Minutes Spent Total Time Spent with Patient: Total time spent is greater than 50% in coordination of care (as documented) at patient's floor/unit and/or counseling patient: Coding Level of Care Code 33428 Inpt Consult Level 4 Diagnoses Cholelithiasis K80.80 Biliary obstruction: without biliary obstruction Cholelithiasis location: other site (1) Cholelithiasis Biliary obstruction: without biliary obstruction Cholelithiasis location: other site Qualified Code(s): K80.80 - Other cholelithiasis without obstruction
--- NOTE | 2019-09-14 13:46 | Nuclear Medicine Report ---
NM hepatobiliary EF CLINICAL HISTORY: 69 years-old Male with cholecystitis?. Acute right upper quadrant abdominal pain TECHNIQUE: Following the intravenous administration of 5.6 mCi of technetium-99m Choletec, sequentia l abdominal images were obtained. COMPARISON: CT abdomen and pelvis 09/13/2019 FINDINGS: There is prompt, uniform accumulation of the tracer by the liver. There is normal filling of the int rahepatic ducts, and common bile duct with normal excretion of the tracer into the duodenum. At 60 mi nutes, the gallbladder is not identified. 2 mg morphine sulfate given intravenously was then administ ered to the patient. Moderate enterogastric reflux is not appreciated. Correlate images were obtained through 100 minutes there is progression of tracer into the bowel with nonvisualization of the gallb ladder. IMPRESSION: 1. Findings compatible with cystic duct obstruction likely secondary to acute cholecystitis. Surgical consultation advised. 2. No evidence of common bile duct obstruction. 3. Moderate enterogastric reflux. ACT 112: Negative or not required by law. The above report was generated using voice recognition software. It may contain grammatical, syntax o r spelling errors. Electronically signed by: Jose Powell M.D. 09/14/2019 1:45 PM
--- NOTE | 2019-09-14 16:49 | Hospitalist Progress Note ---
Date of Service September 14, 2019 Assessment & Plan (1) Acute cholecystitis: Has been complaining of abdominal bloating after food for a long time Admitted with right loin pain and noted to have gallstones and sludge Did not have any fever no chills and or elevation of the liver enzymes HIDA scan did show obstruction of the cystic duct with dilatation of the gallbladder Appreciate surgery input and recommendation for laparoscopic cholecystectomy tomorrow He has been feeling better Present on Admission?: Yes (2) Cholelithiasis: As above (3) Microscopic hematuria: Noted to have microscopic hematuria Recent right flank pain No stones noted Appreciate urology input and recommendation Await cytology report Will need outpatient appointment with urologist (4) Right flank pain: As above DVT prophylaxis SCDs CODE STATUS Full Subjective 09/14/2019 The patient was seen and examined in medical floor He was admitted with abdominal pain suggestive of gallbladder disease and noted to have acute cholecystitis Does not have any significant pain in the abdomen Denies any fever and/or chills or any other symptoms Review of Systems Review of Systems: All systems reviewed and are unremarkable except as noted below Gastrointestinal: + bloating (Has been complaining of bloating following food for a long time ); no abdominal pain, no nausea and no vomiting Genitourinary: + hematuria (Has had microscopic hematuria) Physical Exam Physical Exam: Lying in bed comfortably Constitutional: well developed, well nourished and + obese; no acute distress Eyes: PERRL, conjunctivae normal, anicteric sclerae ENMT: external ear and nose normal, oropharynx normal Neck: trachea midline, no thyromegaly Respiratory: normal respiratory effort; no respiratory distress Auscultation: lungs clear to auscultation bilaterally Cardiovascular: Rate/Rhythm: regular rate and regular rhythm Heart Sounds: no murmur Gastrointestinal (Abdomen): Inspection/Auscultation: abdomen normal to inspection and normal bowel sounds; abdomen not distended Percussion/Palpation: abdomen soft; abdomen nontender Wilkes sign negative Neurologic: moves all extremities; no focal motor deficits Lymphatic: no cervical or axillary lymphadenopathy Results & Data Vital Signs (Past 12 Hours) Vital Signs Temp Pulse Resp BP Pulse Ox 09/14/19 15:24 37.1 C 58 L 16 135/77 91 09/14/19 07:16 36.9 C 63 20 110/66 94 Laboratory Results Short CBC 09/13/19 09/14/19 Range/Units 17:34 04:53 WBC 11.26 H 7.90 (4.8-10.8) K/uL Hgb 15.4 13.9 L (14.0-18.0) g/dL Hct 44.5 41.9 L (42-52) % Plt Count 302 244 (130-400) K/uL BMP 09/13/19 09/14/19 17:34 04:53 Sodium 138 141 Potassium 3.6 3.8 Chloride 105 111 H Carbon Dioxide 26 28 BUN 21 H 19 H Creatinine 1.31 1.00 D Glucose 124 H 121 H Calcium 9.8 8.5 Cardiac Enzymes 09/14/19 Range/Units 04:53 Troponin I < 0.015 (0-0.045) ng/ml Liver Function 09/13/19 09/14/19 Range/Units 17:34 04:53 Total Bilirubin 0.6 0.7 (0.2-1) mg/dl Direct Bilirubin < 0.1 < 0.1 (0-0.2) mg/dl AST 13 L 12 L (15-37) U/L ALT 23 19 (12-78) U/L Alkaline Phosphatase 96 77 (45-117) U/L Albumin 4.0 3.0 L (3.4-5.0) gm/dl Urine 09/13/19 Range/Units 17:34 Urine Color Yellow Urine Appearance Clear (Clear) Urine pH 5.0 (4.5-7.5) Ur Specific [place] 1.023 (1.000-1.030) Urine Protein Negative (Negative) Urine Glucose (UA) Negative (Negative) Medications Administered Current Inpatient Medications Acetaminophen (Tylenol) 650 mg PO Q4H PRN PRN Reason: pain/fever Stop: 10/13/19 23:10 Atorvastatin Calcium (Lipitor) 20 mg PO HS REPLACED BY [facility] Stop: 10/14/19 20:59 Lisinopril/HCTZ (Prinzide 10/12.5mg) 1 tab PO QAM LIAM Stop: 10/14/19 08:59 Last Admin: 09/14/19 09:03 Dose: 1 tab Documented by: Famotidine 20 mg/ Syringe 5 mls @ 2.5 mls/min IV BID LIAM Stop: 10/13/19 23:10 Last Admin: 09/14/19 09:05 Dose: Not Given Documented by: Dextrose/Sodium Chloride (D5w And Nss) 1,000 mls @ 125 mls/hr IV .Q8H REPLACED BY [facility] Stop: 10/13/19 23:10 Last Admin: 09/14/19 16:25 Dose: 125 mls/hr Documented by: Cefoxitin Sodium 2,000 mg/ (Dextrose) 60 mls @ 100 mls/hr IV PREOP REPLACED BY [facility] Stop: 09/16/19 05:59 Ondansetron HCl (Zofran) 4 mg IV Q6H PRN PRN Reason: Nausea Stop: 10/13/19 23:10 Vitamin D (Vitamin D3) 1,000 units PO QAM REPLACED BY [facility] Stop: 10/14/19 08:59 Last Admin: 09/14/19 09:03 Dose: 1,000 units Documented by: (1) Cholelithiasis Biliary obstruction: without biliary obstruction Cholelithiasis location: other site Qualified Code(s): K80.80 - Other cholelithiasis without obstruction
[2019-09-14] MEDS: ATORVASTATIN 20 MG TAB PO SCH (20:44)
[2019-09-15] MEDS: D5W AND NSS 1,000 ML IV SCH ×2 (00:31→19:16)
[2019-09-15 05:12] LABS: Basophils # (auto) 0.03 K/uL (0-0.2); Basophils % (auto) 0.5 %; Eosinophils # (auto) 0.35 K/uL (0-0.5); Eosinophils % (auto) 6.1 %; Hematocrit (blood only) 42.2 % (42-52); Hemoglobin 14.1 g/dL (14.0-18.0); Immature Granulocytes # (auto) 0.02 K/uL (0.00-0.02); Immature Granulocytes % (auto) 0.3 %; Lymphocytes % (auto) 20.9 %; Mean Corpuscular Hemoglobin 30.7 pg (25-34); Mean Corpuscular Hgb Conc 33.4 g/dL (32-36); Mean Corpuscular Volume 91.9 fL (80-100); Mean Platelet Volume 9.9 fL (7.4-10.4); Monocytes # (auto) 0.81 K/uL (0.11-0.59); Monocytes % (auto) 14.1 %; Neutrophils # (auto) 3.32 K/uL (1.4-6.5); Neutrophils % (auto) 58.1 %; Platelet Count 227 K/uL (130-400); RDW Coefficient of Variation 12.3 % (11.5-14.5); RDW Standard Deviation 41.6 fL (36.4-46.3); Red Blood Count 4.59 M/uL (4.7-6.1); White Blood Count 5.73 K/uL (4.8-10.8)
[2019-09-15 05:41] LABS: Albumin Level 3.1 gm/dl (3.4-5.0); BUN Creatinine Ratio 13.3 (10-20); Calcium 8.4 mg/dl (8.5-10.1); Creatinine Clr Calc Pharmacy 86.6 ml/min; Est GFR (African American) 106.9; Est GFR (Non-African American) 92.3; Potassium 3.9 mmol/L (3.5-5.1)
[2019-09-15 05:46] LABS: Bilirubin,Total 0.6 mg/dl (0.2-1); Globulin 3.1 gm/dl (2.5-4.0); Prostate Specific Antigen 5.15 ng/ml (0-4); Total Protein 6.2 gm/dl (6.4-8.2)
[2019-09-15] MEDS ORDERED: cefOXitin 2,000 MG in DEXTROSE 5% 50 ML IV SCH (06:00)
--- NOTE | 2019-09-15 06:09 | Electrocardiogram Report ---
Test Reason : Blood Pressure : / mmHG Vent. Rate : 060 BPM Atrial Rate : 060 BPM P-R Int : 138 ms QRS Dur : 082 ms QT Int : 436 ms P-R-T Axes : 032 048 039 degrees QTc Int : 436 ms Normal sinus rhythm Normal ECG No previous ECGs available Confirmed by Ivan Garcia ([id number]) on 09/15/2019 6:09:32 AM Referred By: REFERRED SELF Confirmed By:Ivan Garcia
[2019-09-15] MEDS ORDERED: MIDAZOLAM HCL 1 MG/ML 2ML VIAL ONE (07:03)
[2019-09-15] MEDS ORDERED: fentaNYL citrate 100 MCG/2 ML VIAL ONE ×3 (07:03→08:59)
[2019-09-15] MEDS ORDERED: NEOSTIGMINE METHYLSULFATE 5 MG/5 ML SYR ONE (07:03)
[2019-09-15] MEDS ORDERED: ONDANSETRON INJ 2 MG/ML 2 ML VIAL ONE (07:03)
[2019-09-15] MEDS ORDERED: PROPOFOL IV EMULSION 10 MG/ML 20 ML VIAL IV ONE (07:03)
[2019-09-15] MEDS ORDERED: LIDOCAINE HCL 2% 2 ML VIAL/AMP(20MG/ML) INFIL ONE (07:03)
[2019-09-15] MEDS ORDERED: GLYCOPYRROLATE 0.2 MG/ML VIAL ONE (07:03)
[2019-09-15] MEDS ORDERED: DEXAMETHASONE SOD INJ 4 MG/ML VIAL ONE (07:03)
--- NOTE | 2019-09-15 07:20 | Anesthesiology Consultation ---
Date of Service September 15, 2019 Assessment & Plan (1) Encounter for pre-operative examination: Chart Review Chart Review: Acceptable Risk for Surgery and Patient NOT seen in Pre Admission Testing History Surgery Operation Date: 09/15/19 07:30 Proposed Procedures p Laparoscopic Cholecystectomy, Possible Cholangiogram - Devyn Lennon DO, FACS Height/Weight Height: 5 ft 8 in Weight: 82 kg Allergies Allergy/AdvReac Type Severity Reaction Status Date / Time No Known Allergies Allergy Unverified 09/13/19 18:14 Medications Home Medications Medication Instructions Recorded Confirmed Last Taken atorvastatin [Lipitor] 20 mg PO HS 09/13/19 09/13/19 09/12/19 cholecalciferol (vitamin D3) 1,000 unit PO QAM 09/13/19 09/13/19 09/13/19 [Vitamin D3] lisinopril-hydrochlorothiazide 1 tab PO QAM 09/13/19 09/13/19 09/13/19 [Zestoretic] Active Medications Generic Name Dose Route Start Last Admin Trade Name Freq PRN Reason Stop Dose Admin Atorvastatin Calcium 20 mg 09/14/19 21:00 09/14/19 20:44 Lipitor PO 10/14/19 20:59 20 mg HS LIAM Administration Lisinopril/HCTZ 1 tab 09/14/19 09:00 09/14/19 09:03 Prinzide 10/12.5mg PO 10/14/19 08:59 1 tab QAM LIAM Administration Famotidine 20 mg/ Syringe 5 mls @ 2.5 mls/min 09/13/19 23:11 09/14/19 21:25 IV 10/13/19 23:10 2.5 mls/min BID LIAM Administration Dextrose/Sodium Chloride 1,000 mls @ 125 mls/hr 09/13/19 23:11 09/15/19 00:31 D5w And Nss IV 10/13/19 23:10 125 mls/hr .Q8H LIAM Administration Vitamin D 1,000 units 09/14/19 09:00 09/14/19 09:03 Vitamin D3 PO 10/14/19 08:59 1,000 units QAM LIAM Administration NPO Date Last Intake of Fluids: 09/14/19 Time Last Intake of Fluids: 23:50 Date Last Intake of Solids: 09/14/19 Time Last Intake of Solids: 23:50 Past Medical History Medical History Hyperlipidemia Hypertension Past Family History Family History Other Family history non-contributory Past Surgical History Surgical History History of appendectomy Social History Smoking Status: Never smoker Hx Alcohol Use: Yes Alcohol type: beer alcohol intake frequency: a few times a month Hx Substance Use: No Physical Exam Vital Signs Last Vital Signs Temp 36.6 C 09/15/19 06:25 Pulse 73 09/15/19 06:25 Resp 18 09/15/19 06:25 BP 129/75 09/15/19 06:25 Pulse Ox 94 09/15/19 06:25 Testing Laboratory Results 09/15/19 04:52 09/15/19 04:52 PT 11.0 Seconds (9.0-12.0) 09/13/19 17:34 INR 1.1 (0.9-1.1) 09/13/19 17:34 APTT 28.8 Seconds (21.0-31.0) 09/13/19 17:34 Urine Color Yellow 09/13/19 17:34 Urine Appearance Clear (Clear) 09/13/19 17:34 Urine pH 5.0 (4.5-7.5) 09/13/19 17:34 Ur Specific [place] 1.023 (1.000-1.030) 09/13/19 17:34 Urine Protein Negative (Negative) 09/13/19 17:34 Urine Glucose (UA) Negative (Negative) 09/13/19 17:34 Urine Ketones Negative (Negative) 09/13/19 17:34 Urine Nitrite Negative (Negative) 09/13/19 17:34 Ur Leukocyte Esterase Negative (Negative) 09/13/19 17:34 Urine WBC (Auto) 1-5 /hpf (0-5) 09/13/19 17:34 Urine RBC (Auto) >30 /hpf (0-4) H 09/13/19 17:34 U Hyaline Cast (Auto) 1-5 /lpf (0-5) 09/13/19 17:34 U Epithel Cells (Auto) 0-5 /lpf (0-5) 09/13/19 17:34 Urine Bacteria (Auto) Negative (Negative) 09/13/19 17:34 Electrocardiogram Date: 09/14/19 Normal sinus rhythm Normal ECG No previous ECGs available Confirmed by Ivan Garcia ([id number]) on 09/15/2019 6:09:32 AM
[2019-09-15] MEDS ORDERED: HYDROmorphone INJ 1 MG/ML SYRINGE IV PRN (07:24)
[2019-09-15] MEDS ORDERED: ONDANSETRON INJ 2 MG/ML 2 ML VIAL IV PRN (07:24)
[2019-09-15] MEDS ORDERED: ePHEDrine sulfate 50 MG/ML AMP IV PRN (07:24)
[2019-09-15] MEDS ORDERED: ATROPINE SULFATE 0.1 MG/ML 10ML SYR IV PRN (07:24)
[2019-09-15] MEDS ORDERED: BUPIVACAINE 0.5 % 5 MG/1 ML MPF 30ML VIAL ONE ×2 (07:30→07:34)
--- NOTE | 2019-09-15 07:33 | Surgery Progress Note ---
Date of Service September 15, 2019 Assessment & Plan (1) Acute cholecystitis: 69 y/o male with cholecystitis plan for laparoscopic cholecystectomy, possible cholangiogram risks reviewed questions answered plan to proceed with surgery Subjective 69 y/o admitted with abdominal pain, HIDA showed cholecystitis. No changes since yesterday, pain resolved. Physical Exam Constitutional: WD/WN, vitals as above Gastrointestinal (Abdomen): normal bowel sounds, soft, nontender, no hepatosplenomegaly Percussion/Palpation: + hernia Results & Data Vital Signs (Past 12 Hours) Vital Signs Temp Pulse Resp BP Pulse Ox 09/15/19 06:25 36.6 C 73 18 129/75 94 09/14/19 23:05 36.6 C 68 18 131/74 94 PG Care Time/CCT Total # of Minutes Spent Total Time Spent with Patient: Total time spent is greater than 50% in coordination of care (as documented) at patient's floor/unit and/or counseling patient: Coding Level of Care Code 79235 Inpt Consult Level 3 Diagnoses Acute cholecystitis K81.0
[2019-09-15] MEDS ORDERED: KETOROLAC 30 MG/ML VIAL ONE (08:02)
[2019-09-15] MEDS ORDERED: LARYING-O-JET KIT (LTA) ONE (08:02)
[2019-09-15] MEDS ORDERED: ROCURONIUM BROMIDE 10 MG/ML 5 ML VIAL ONE (08:02)
--- NOTE | 2019-09-15 08:39 | Operative Report ---
PG Post Operative Report Pre & Post Diagnosis Operation Date: 09/15/19 07:30 Pre-Op Diagnosis: Acute Cholecystitis Post-Op Diagnosis: Acute Cholecystitis I identified the patient and participated in the time-out.: Yes Procedure Operation Date: 09/15/19 07:30 Actual Procedures p Laparoscopic Cholecystectomy(Not Applicable) - Devyn Lennon DO, BRIANA Surgeon Devyn Lennon DO, FACS Clinical Engineering Director Daksha Oliveira Estimated Blood Loss 10 Findings Consistent with Post-Op Diagnosis Acute cholecystitis. Critical view of safety obtained, cystic duct and artery doubly clipped and divided. Specimens Gallbladder Anesthesia Type General Complications none Disposition Accompanied Patient To Recovery: No Disposition: Recovery Room Indications 69-year-old male admitted with abdominal pain and equivocal findings on CT and ultrasound for acute cholecystitis. HIDA scan was performed and showed nonfilling of the gallbladder consistent with acute cholecystitis. Plan for laparoscopic cholecystectomy with possible cholangiogram. The risks of the procedure were discussed, all questions were answered, and the patient agreed to proceed with surgery as planned. Description of Procedure The patient was properly identified, consented, and taken to the operating room where he was placed in the supine position. General endotracheal anesthesia was induced. SCDs and a safety belt were placed. Preoperative antibiotics were administered. The patient's abdomen was prepped and draped in the standard sterile fashion. A surgical timeout was performed and all parties were in agreement that this was the correct patient and procedure to be performed and we continued as planned. A stab incision was made in the left upper quadrant and the Veress needle was inserted. Saline drop test confirmed entry into the peritoneum. The abdomen was insufflated with carbon dioxide which the patient tolerated without incident. An incision was made superior and to the left of the umbilicus and lateral to his prior hernia repair. The abdomen was then entered using the Optiview technique and a 5 mm trocar. The laparoscope was inserted and no damage from initial trocar or Veress needle placement was noted, no gross abnormalities were noted within the 4 quadrants of the abdomen. An 11 mm port was placed in the subxiphoid position and two 5 mm ports were then placed in the right subcostal position. The patient was placed in reverse Trendelenburg position and rotated towards the left. The gallbladder was inflamed consistent with acute on chronic cholecystitis. The dome of the gallbladder was retracted towards the left upper quadrant and the infundibulum was retracted toward the right lower quadrant revealing Calot's triangle. Peritoneal attachments were taken down with electrocautery and blunt dissection. The cystic duct and artery were circumferentially dissected. A window of safety was obtained showing the cystic duct entering the gallbladder with no aberrant structures noted. The cystic duct and artery were doubly clipped and divided. The gallbladder was then lifted off the gallbladder fossa with electrocautery. The gallbladder was placed in an Endo Catch bag and removed through the subxiphoid port site. There was some bleeding from the gallbladder fossa which was controlled with electrocautery. The right upper quadrant was irrigated and hemostasis was found to be good. 5 mm trochars were removed under direct visualization and the abdomen was allowed to collapse. The subxiphoid port site fascia was closed with 0 Vicryl suture. The wound was irrigated, and the skin of all ports was closed with 4-0 Monocryl subcuticular sutures. Dermabond was placed over the wounds. The patient was extubated in the operating room and taken to the PACU where he recovered without apparent incident. All sponge, instrument and needle counts were correct at the conclusion of the procedure. The patient tolerated the procedure well. The physician's hardware sales assistant was present and scrubbed for the entirety of the case and was essential in positioning the patient, prepping and draping, retraction and exposure, driving the laparoscope, removal of the gallbladder, closure the incisions, and placement of the dressings. I attest to the content of the Intraoperative Record and any orders documented therein. Any exceptions are noted below.
[2019-09-15] MEDS ORDERED: OXYCODONE/ACETAMINOPHEN 5mg/325mg TAB PO PRN ×2 (08:57)
[2019-09-15] MEDS ORDERED: MoRPHine SULFATE 10 MG/ML CARP/VIAL IV PRN (08:57)
[2019-09-15] MEDS ORDERED: MoRPHine SULFATE 2 MG/ML CARP IV PRN (08:57)
[2019-09-15] MEDS ORDERED: MoRPHine SULFATE 4 MG/ML 1 ML CARP\\VIAL IV PRN (08:57)
[2019-09-15] MEDS: fentaNYL citrate 100 MCG/2 ML VIAL IV PRN ×2 (09:00→09:05)
--- NOTE | 2019-09-15 09:34 | Anesthesiology Progress Note ---
Date of Service September 15, 2019 Anesthesia Post Procedure Vital Signs Vital Signs: Temp Pulse Pulse Resp BP BP Pulse Ox 09/15/19 09:25 58 L 14 126/70 97 09/15/19 09:15 57 L 16 147/78 H 94 09/15/19 09:05 59 L 12 150/82 H 93 09/15/19 08:55 36.2 C L 70 16 117/76 95 09/15/19 06:25 36.6 C 73 18 129/75 94 09/14/19 23:05 36.6 C 68 18 131/74 94 09/14/19 15:24 37.1 C 58 L 16 135/77 91 Pain Intensity Abdomen: Pain Intensity: 4 Transfer of Care Handoff Completed per policy Notes Mental Status: alert / awake / arousable and participated in evaluation Patient Amnestic to Procedure: Yes Nausea / Vomiting: adequately controlled Pain: adequately controlled Airway Patency, RR, SpO2: stable & adequate BP & HR: stable & adequate Hydration State: stable & adequate Anesthetic Complications: no major complications apparent and Pt Satisfied with anesthetic care
[2019-09-15] MEDS: LACTATED RINGER'S 1,000 ML IV SCH ×2 (10:13→19:44)
[2019-09-15] MEDS: FAMOTIDINE 20 MG in SYRINGE 3 ML IV SCH (10:15)
[2019-09-15] MEDS: LISINOPRIL/HCTZ 10/12.5MG TAB PO SCH ×2 (10:15→15:54)
[2019-09-15] MEDS: ONDANSETRON INJ 2 MG/ML 2 ML VIAL IV PRN ×2 (10:16→16:15)
[2019-09-15] MEDS: CHOLECALCIFEROL 1,000 UNITS 25 MCG TAB PO SCH ×2 (10:16→15:54)
--- NOTE | 2019-09-15 13:47 | Hospitalist Progress Note ---
Date of Service September 15, 2019 Assessment & Plan (1) Acute cholecystitis: Has been complaining of abdominal bloating after food for a long time Admitted with right loin pain and noted to have gallstones and sludge Did not have any fever no chills and or elevation of the liver enzymes HIDA scan did show obstruction of the cystic duct with dilatation of the gallbladder Appreciate surgery input and recommendation for laparoscopic cholecystectomy tomorrow He has been feeling better Status post laparoscopic cholecystectomy on 09/15/19-appreciate surgery input and recommendation Minimal abdominal pain and nausea Symptoms stable (2) Cholelithiasis: As above (3) Microscopic hematuria: Noted to have microscopic hematuria Recent right flank pain No stones noted Appreciate urology input and recommendation Await cytology report Will need outpatient appointment with urologist (4) Right flank pain: As above DVT prophylaxis SCDs CODE STATUS Full Subjective 09/14/2019 The patient was seen and examined in medical floor He was admitted with abdominal pain suggestive of gallbladder disease and noted to have acute cholecystitis Does not have any significant pain in the abdomen Denies any fever and/or chills or any other symptoms 09/15/2019 The patient was seen and examined in medical floor He is a status post laparoscopic cholecystectomy this morning Complains of abdominal pain and nausea Review of Systems Review of Systems: All systems reviewed and are unremarkable except as noted below Gastrointestinal: + bloating (Has been complaining of bloating following food for a long time ); no abdominal pain, no nausea and no vomiting Genitourinary: + hematuria (Has had microscopic hematuria) Physical Exam Physical Exam: Lying in bed with minimal abdominal discomfort Constitutional: well developed, well nourished and + obese; no acute distress Eyes: PERRL, conjunctivae normal, anicteric sclerae ENMT: external ear and nose normal, oropharynx normal Neck: trachea midline, no thyromegaly Respiratory: normal respiratory effort; no respiratory distress Auscultation: lungs clear to auscultation bilaterally Cardiovascular: Rate/Rhythm: regular rate and regular rhythm Heart Sounds: no murmur Gastrointestinal (Abdomen): Inspection/Auscultation: + abdomen distended and normal bowel sounds Percussion/Palpation: + abdomen tender, + guarding (Minimal guarding) and abdomen soft Neurologic: moves all extremities; no focal motor deficits Lymphatic: no cervical or axillary lymphadenopathy Results & Data Vital Signs (Past 12 Hours) Vital Signs Temp Pulse Pulse Resp BP BP Pulse Ox 09/15/19 12:33 36.6 C 56 L 16 117/64 95 09/15/19 11:45 36.9 C 69 16 107/71 91 09/15/19 10:50 36.5 C 53 L 14 103/63 98 09/15/19 10:09 53 L 17 111/69 93 09/15/19 09:40 36.6 C 54 L 17 125/74 95 09/15/19 09:35 36.2 C L 52 L 14 121/68 96 09/15/19 09:25 58 L 14 126/70 97 09/15/19 09:15 57 L 16 147/78 H 94 09/15/19 09:05 59 L 12 150/82 H 93 09/15/19 08:55 36.2 C L 70 16 117/76 95 09/15/19 06:25 36.6 C 73 18 129/75 94 Laboratory Results Short CBC 09/15/19 Range/Units 04:52 WBC 5.73 (4.8-10.8) K/uL Hgb 14.1 (14.0-18.0) g/dL Hct 42.2 (42-52) % Plt Count 227 (130-400) K/uL BMP 09/15/19 04:52 Sodium 142 Potassium 3.9 Chloride 112 H Carbon Dioxide 27 BUN 10 D Creatinine 0.79 Glucose 100 H Calcium 8.4 L Liver Function 09/15/19 Range/Units 04:52 Total Bilirubin 0.6 (0.2-1) mg/dl AST 14 L (15-37) U/L ALT 20 (12-78) U/L Alkaline Phosphatase 71 (45-117) U/L Albumin 3.1 L (3.4-5.0) gm/dl Medications Administered Current Inpatient Medications Acetaminophen (Tylenol) 650 mg PO Q4H PRN PRN Reason: pain/fever Stop: 10/13/19 23:10 Atorvastatin Calcium (Lipitor) 20 mg PO HS LIAM Stop: 10/14/19 20:59 Last Admin: 09/14/19 20:44 Dose: 20 mg Documented by: Lisinopril/HCTZ (Prinzide 10/12.5mg) 1 tab PO QAM LIAM Stop: 10/14/19 08:59 Last Admin: 09/14/19 09:03 Dose: 1 tab Documented by: Famotidine 20 mg/ Syringe 5 mls @ 2.5 mls/min IV BID COUNT INCLUDES THE [facility] Stop: 10/13/19 23:10 Last Admin: 09/15/19 10:15 Dose: 2.5 mls/min Documented by: Cefoxitin Sodium 2,000 mg/ (Dextrose) 60 mls @ 100 mls/hr IV PREOP COUNT INCLUDES THE [facility] Stop: 09/16/19 05:59 Last Infusion: 09/15/19 10:08 Dose: Infused Documented by: Lactated Ringer's (Lr) 1,000 mls @ 100 mls/hr IV .Q10H COUNT INCLUDES THE [facility] Stop: 10/15/19 09:14 Last Admin: 09/15/19 10:13 Dose: 100 mls/hr Documented by: Morphine Sulfate (Morphine Sulfate) 2 mg IV Q3H PRN PRN Reason: MILD Pain (Scale 1,2,3) Stop: 09/29/19 08:56 Morphine Sulfate (Morphine Sulfate) 3 mg IV Q3H PRN PRN Reason: MODERATE Pain (Scale 4,5,6) Stop: 09/29/19 08:56 Morphine Sulfate (Morphine Sulfate) 4 mg IV Q3H PRN PRN Reason: SEVERE Pain (Scale 7,8,9,10) Stop: 09/29/19 08:56 Ondansetron HCl (Zofran) 4 mg IV Q6H PRN PRN Reason: Nausea Stop: 10/13/19 23:10 Last Admin: 09/15/19 10:16 Dose: 4 mg Documented by: Oxycodone/Acetaminophen (Percocet 5mg/325mg) 1 tab PO Q4H PRN PRN Reason: MODERATE Pain (Scale 4,5,6) Stop: 09/29/19 08:56 Last Admin: 09/15/19 10:16 Dose: 1 tab Documented by: Oxycodone/Acetaminophen (Percocet 5mg/325mg) 2 tab PO Q4H PRN PRN Reason: SEVERE Pain (Scale 7,8,9,10) Stop: 09/29/19 08:56 Vitamin D (Vitamin D3) 1,000 units PO QAM COUNT INCLUDES THE [facility] Stop: 10/14/19 08:59 Last Admin: 09/14/19 09:03 Dose: 1,000 units Documented by: (1) Cholelithiasis Biliary obstruction: without biliary obstruction Cholelithiasis location: other site Qualified Code(s): K80.80 - Other cholelithiasis without obstruction
[2019-09-15] MEDS ORDERED: PROMETHAZINE HCL 12.5 MG in SODIUM CHLORIDE 0.9% 50 ML IV PRN (16:44)
[2019-09-15] MEDS: ATORVASTATIN 20 MG TAB PO SCH (19:47)
[2019-09-15] MEDS: FAMOTIDINE 20 MG TAB PO SCH (19:47)
[2019-09-16] MEDS: LACTATED RINGER'S 1,000 ML IV SCH ×2 (05:10→15:22)
[2019-09-16 05:24] LABS: Basophils # (auto) 0.01 K/uL (0-0.2); Basophils % (auto) 0.1 %; Eosinophils # (auto) 0.01 K/uL (0-0.5); Eosinophils % (auto) 0.1 %; Hemoglobin 12.7 g/dL (14.0-18.0); Immature Granulocytes # (auto) 0.02 K/uL (0.00-0.02); Immature Granulocytes % (auto) 0.2 %; Lymphocytes # (auto) 0.75 K/uL (1.2-3.4); Lymphocytes % (auto) 7.9 %; Mean Corpuscular Hemoglobin 30.4 pg (25-34); Mean Corpuscular Hgb Conc 33.4 g/dL (32-36); Mean Corpuscular Volume 90.9 fL (80-100); Mean Platelet Volume 10.1 fL (7.4-10.4); Monocytes # (auto) 0.97 K/uL (0.11-0.59); Monocytes % (auto) 10.2 %; Neutrophils # (auto) 7.79 K/uL (1.4-6.5); Neutrophils % (auto) 81.5 %; Platelet Count 199 K/uL (130-400); RDW Coefficient of Variation 12.2 % (11.5-14.5); RDW Standard Deviation 40.6 fL (36.4-46.3); Red Blood Count 4.18 M/uL (4.7-6.1); White Blood Count 9.55 K/uL (4.8-10.8)
[2019-09-16 05:50] LABS: Albumin Level 2.8 gm/dl (3.4-5.0); BUN Creatinine Ratio 16.3 (10-20); Bilirubin Direct 0.1 mg/dl (0-0.2); Calcium 8.8 mg/dl (8.5-10.1); Creatinine Clr Calc Pharmacy 81.4 ml/min; Est GFR (African American) 104.3; Potassium 4.1 mmol/L (3.5-5.1)
[2019-09-16 05:53] LABS: Albumin Globulin Ratio 0.9 (0.9-2); Bilirubin,Total 0.6 mg/dl (0.2-1); Total Protein 5.8 gm/dl (6.4-8.2)
[2019-09-16] MEDS: CHOLECALCIFEROL 1,000 UNITS 25 MCG TAB PO SCH (08:29)
[2019-09-16] MEDS: FAMOTIDINE 20 MG TAB PO SCH (08:29)
[2019-09-16] MEDS: LISINOPRIL/HCTZ 10/12.5MG TAB PO SCH (08:29)
--- NOTE | 2019-09-16 09:22 | Surgery Progress Note ---
Date of Service September 16, 2019 Assessment & Plan (1) Acute cholecystitis: POD 1 lap flex advance diet should be ok for discharge later today seen with Dr. Lennon Subjective some N/V after taking Percocet after clear liquid dinner, better this AM Physical Exam Gastrointestinal (Abdomen): Inspection/Auscultation: + abdominal surgical incision (clean, dry); abdomen not distended Percussion/Palpation: abdomen soft Results & Data Vital Signs (Past 12 Hours) Vital Signs Temp Pulse Resp BP Pulse Ox 09/16/19 04:03 36.5 C 58 L 18 113/67 94 09/15/19 23:25 36.6 C 66 18 127/76 95 PG Care Time/CCT Total # of Minutes Spent Total Time Spent with Patient: Total time spent is greater than 50% in coordination of care (as documented) at patient's floor/unit and/or counseling patient: Coding Level of Care Code None Diagnoses Acute cholecystitis K81.0
--- NOTE | 2019-09-16 10:53 | Hospitalist Progress Note ---
Date of Service September 16, 2019 Assessment & Plan (1) Acute cholecystitis: Has been complaining of abdominal bloating after food for a long time Admitted with right loin pain and noted to have gallstones and sludge Did not have any fever no chills and or elevation of the liver enzymes HIDA scan did show obstruction of the cystic duct with dilatation of the gallbladder Appreciate surgery input and recommendation for laparoscopic cholecystectomy tomorrow He has been feeling better Status post laparoscopic cholecystectomy on 09/15/19-appreciate surgery input and recommendation Minimal abdominal pain and nausea Symptoms stable Tolerated clears and will advance diet If he tolerates regular diet at lunch he will be going home this afternoon (2) Cholelithiasis: As above S post laparoscopic cholecystectomy (3) Microscopic hematuria: Noted to have microscopic hematuria Recent right flank pain No stones noted Appreciate urology input and recommendation Await cytology report Will need outpatient appointment with urologist (4) Right flank pain: As above DVT prophylaxis SCDs CODE STATUS Full Subjective 09/14/2019 The patient was seen and examined in medical floor He was admitted with abdominal pain suggestive of gallbladder disease and noted to have acute cholecystitis Does not have any significant pain in the abdomen Denies any fever and/or chills or any other symptoms 09/15/2019 The patient was seen and examined in medical floor He is a status post laparoscopic cholecystectomy this morning Complains of abdominal pain and nausea 09/16/2019 The patient was seen and examined in medical floor He complains to have minimal abdominal discomfort Tolerated clears since yesterday Will advance diet as tolerated To go home this afternoon Review of Systems Review of Systems: All systems reviewed and are unremarkable except as noted below Gastrointestinal: + bloating (Has been complaining of bloating following food for a long time ); no abdominal pain, no nausea and no vomiting Genitourinary: + hematuria (Has had microscopic hematuria) Physical Exam Physical Exam: Minimal distress at rest Constitutional: well developed, well nourished and + obese; no acute distress Eyes: PERRL, conjunctivae normal, anicteric sclerae ENMT: external ear and nose normal, oropharynx normal Neck: trachea midline, no thyromegaly Respiratory: normal respiratory effort; no respiratory distress Auscultation: lungs clear to auscultation bilaterally Cardiovascular: Rate/Rhythm: regular rate and regular rhythm Heart Sounds: no murmur Gastrointestinal (Abdomen): Inspection/Auscultation: + abdomen distended and normal bowel sounds Percussion/Palpation: + abdomen tender, + guarding (Minimal guarding) and abdomen soft Neurologic: moves all extremities; no focal motor deficits Lymphatic: no cervical or axillary lymphadenopathy Results & Data Vital Signs (Past 12 Hours) Vital Signs Temp Pulse Resp BP Pulse Ox 09/16/19 04:03 36.5 C 58 L 18 113/67 94 09/15/19 23:25 36.6 C 66 18 127/76 95 Laboratory Results Short CBC 09/16/19 Range/Units 04:41 WBC 9.55 (4.8-10.8) K/uL Hgb 12.7 L (14.0-18.0) g/dL Hct 38.0 L (42-52) % Plt Count 199 (130-400) K/uL BMP 09/16/19 04:41 Sodium 141 Potassium 4.1 Chloride 110 H Carbon Dioxide 26 BUN 14 Creatinine 0.84 Glucose 103 H Calcium 8.8 Liver Function 09/16/19 Range/Units 04:41 Total Bilirubin 0.6 (0.2-1) mg/dl Direct Bilirubin 0.1 (0-0.2) mg/dl AST 115 H (15-37) U/L ALT 218 H (12-78) U/L Alkaline Phosphatase 99 (45-117) U/L Albumin 2.8 L (3.4-5.0) gm/dl Medications Administered Current Inpatient Medications Acetaminophen (Tylenol) 650 mg PO Q4H PRN PRN Reason: pain/fever Stop: 10/13/19 23:10 Atorvastatin Calcium (Lipitor) 20 mg PO HS LIAM Stop: 10/14/19 20:59 Last Admin: 09/15/19 19:47 Dose: Not Given Documented by: Famotidine (Pepcid) 20 mg PO BID LIAM Stop: 10/15/19 20:59 Last Admin: 09/16/19 08:29 Dose: 20 mg Documented by: Lisinopril/HCTZ (Prinzide 10/12.5mg) 1 tab PO QAM LIAM Stop: 10/14/19 08:59 Last Admin: 09/16/19 08:29 Dose: 1 tab Documented by: Lactated Ringer's (Lr) 1,000 mls @ 100 mls/hr IV .Q10H LIAM Stop: 10/15/19 09:14 Last Infusion: 09/16/19 05:51 Dose: 100 mls/hr Documented by: Promethazine HCl 12.5 mg/ (Sodium Chloride) 50.5 mls @ 204 mls/hr IV Q6H PRN PRN Reason: Nausea And Vomiting Stop: 10/15/19 16:43 Last Infusion: 09/15/19 22:50 Dose: Infused Documented by: Morphine Sulfate (Morphine Sulfate) 2 mg IV Q3H PRN PRN Reason: MILD Pain (Scale 1,2,3) Stop: 09/29/19 08:56 Morphine Sulfate (Morphine Sulfate) 3 mg IV Q3H PRN PRN Reason: MODERATE Pain (Scale 4,5,6) Stop: 09/29/19 08:56 Morphine Sulfate (Morphine Sulfate) 4 mg IV Q3H PRN PRN Reason: SEVERE Pain (Scale 7,8,9,10) Stop: 09/29/19 08:56 Ondansetron HCl (Zofran) 4 mg IV Q6H PRN PRN Reason: Nausea Stop: 10/13/19 23:10 Last Admin: 09/15/19 16:15 Dose: 4 mg Documented by: Oxycodone/Acetaminophen (Percocet 5mg/325mg) 1 tab PO Q4H PRN PRN Reason: MODERATE Pain (Scale 4,5,6) Stop: 09/29/19 08:56 Last Admin: 09/15/19 10:16 Dose: 1 tab Documented by: Oxycodone/Acetaminophen (Percocet 5mg/325mg) 2 tab PO Q4H PRN PRN Reason: SEVERE Pain (Scale 7,8,9,10) Stop: 09/29/19 08:56 Last Admin: 09/15/19 16:01 Dose: 2 tab Documented by: Vitamin D (Vitamin D3) 1,000 units PO QAM [facility] Stop: 10/14/19 08:59 Last Admin: 09/16/19 08:29 Dose: 1,000 units Documented by: (1) Cholelithiasis Biliary obstruction: without biliary obstruction Cholelithiasis location: other site Qualified Code(s): K80.80 - Other cholelithiasis without obstruction
--- NOTE | 2019-09-16 12:29 | Anesthesiology Progress Note ---
Date of Service September 16, 2019 Anesthesia Post Procedure Vital Signs Vital Signs: Temp Pulse Resp BP BP Pulse Ox 09/16/19 04:03 36.5 C 58 L 18 113/67 94 09/15/19 23:25 36.6 C 66 18 127/76 95 09/15/19 19:10 36.8 C 81 17 107/61 91 09/15/19 15:38 37.1 C 66 16 119/68 90 09/15/19 12:33 36.6 C 56 L 16 117/64 95 Pain Intensity Abdomen: Pain Intensity: 0 Notes Mental Status: alert / awake / arousable and participated in evaluation Patient Amnestic to Procedure: Yes Nausea / Vomiting: adequately controlled Pain: adequately controlled Airway Patency, RR, SpO2: stable & adequate BP & HR: stable & adequate Hydration State: stable & adequate Anesthetic Complications: no major complications apparent
--- NOTE | 2019-09-17 07:31 | Discharge Summary ---
Date of Service September 17, 2019 Admission HPI Per Admitting Provider DICTATED BY: Mikey Ac MD DATE OF ADMISSION: 09/13/2019 CHIEF COMPLAINT: Abdominal pain and flank pain. HISTORY OF PRESENT ILLNESS: This is a 69-year-old male with past medical history significant for hypertension, hyperlipidemia, internal hemorrhoids, history of vitamin D deficiency, anal fissures, who presents with abdominal pain and right flank pain. The patient sayson Tuesday night, he had upper abdominal cramps, started midnight, and could not sleep, lasted until 4:00 a.m. Again on Tuesday night, he had same issue and he did not go to work on Tuesday and today in the evening, the pain started in the right flank region radiating to groins, 8/10 in severity. He has a history of ruptured appendicitis 19 years ago, he felt like similar kind of pain which prompted him to come to the ER. In the ER, CAT scan of abdomen and pelvis was done which showed possible passage of calculus and also showed chronic bladder outlet obstruction in the setting of prostatomegaly and also showed cholelithiasis and apparent gallbladder wall thickening. Gallbladder ultrasound was also done, it shows mildly thickened gallbladder wall, but sonographic Wilkes sign is absent. Recommend nuclear hepatobiliary scan. The patient, after giving Toradol, his pain is resolved. Resting comfortably and hemodynamically stable. Earlier he had nausea, but he is doing okay now. His appetite is not that great the last few days because of ongoing symptoms. He thinks the pain might be associated with fatty food. Denies any burning micturition or blood in the urine. He gets on and off constipation and diarrhea, and it resolves by its own. Denies any black stools or blood in the stool. He says if he walks fast, he gets short of breath at times he feels mild chest discomfort and that resolves with rest. He had stress test several years back and was unremarkable. Denies any cough, no fever, no chills. No dysphagia or odynophagia. The last few days, he has some mild headache in the right temporal region. He has issues with vision and follows with eye doctor. No earache, no runny nose, no sore throat. Occasional dry cough. Currently resting comfortably and hemodynamically stable. He is also having issues with right shoulder, thought to be tendinitis and treated with ibuprofen three times daily for 10 days about 2 weeks ago and few days back also he had a dose of ibuprofen. He still has the pain in the right shoulder. He is also having dry skin and itching and has an appointment with Dermatology coming October. Admission Exam Per Admitting Provider GENERAL: The patient is of moderate build, not in acute distress. VITAL SIGNS: Temperature 36.9, pulse 91, respiratory rate 18, blood pressure 147/70, oxygen 97% on room air. HEENT: No pallor, no icterus. Pupils equal, round, and reactive to light. NECK: No JVD, no neck masses, no carotid bruits. CARDIOVASCULAR: S1, S2 heard, regular rate and rhythm, no murmur, no gallop. RESPIRATORY SYSTEM: Normal AP diameter. No accessory muscle use. No wheezing, no crackles. ABDOMEN: Soft, bowel sounds present. Mild right upper quadrant tenderness. No guarding, no rigidity, no distention. CENTRAL NERVOUS SYSTEM: Cranial nerves II-XII grossly intact, nonfocal. EXTREMITIES: No edema, no erythema. Principal Diagnosis laparoscopic cholecystectomy Discharge Exam Constitutional well developed, well nourished and + obese; no acute distress Eyes PERRL, conjunctivae normal, anicteric sclerae ENMT external ear and nose normal, oropharynx normal Neck trachea midline, no thyromegaly Respiratory normal respiratory effort; no respiratory distress Auscultation: lungs clear to auscultation bilaterally Cardiovascular Rate/Rhythm: regular rate and regular rhythm Heart Sounds: no murmur Gastrointestinal (Abdomen) Inspection/Auscultation: + abdomen distended and normal bowel sounds Percussion/Palpation: + abdomen tender, + guarding (Minimal guarding) and abdomen soft Neurologic moves all extremities; no focal motor deficits Lymphatic no cervical or axillary lymphadenopathy Discharge Data Allergies Allergy/AdvReac Type Severity Reaction Status Date / Time No Known Allergies Allergy Unverified 09/13/19 18:14 Consultations 09/13/19 19:26 ED Decision to Admit Stat 09/13/19 23:11 Consult Case Management - Discharge Planning Routine 09/14/19 08:00 Consult General Surgery Routine Consult Urology Routine Procedures Performed Operation Date: 09/15/19 07:30 Actual Procedures p Laparoscopic Cholecystectomy(Not Applicable) - Devyn Lennon DO, FACS Ordered Studies 01/23/20 17:23 CT abd pelvis wo con Stat 09/13/19 18:19 US gallbladder Stat Hospital Course (1) Acute cholecystitis: Has been complaining of abdominal bloating after food for a long time Admitted with right loin pain and noted to have gallstones and sludge Did not have any fever no chills and or elevation of the liver enzymes HIDA scan did show obstruction of the cystic duct with dilatation of the gallbladder Appreciate surgery input and recommendation for laparoscopic cholecystectomy tomorrow He has been feeling better Status post laparoscopic cholecystectomy on 09/15/19-appreciate surgery input and recommendation Minimal abdominal pain and nausea Symptoms stable Tolerated clears and will advance diet If he tolerates regular diet at lunch he will be going home this afternoon (2) Cholelithiasis: As above S post laparoscopic cholecystectomy (3) Microscopic hematuria: Noted to have microscopic hematuria Recent right flank pain No stones noted Appreciate urology input and recommendation Await cytology report Will need outpatient appointment with urologist (4) Right flank pain: As above DVT prophylaxis SCDs CODE STATUS Full Total Time Total Time Spent Total Time Spent (In Minutes): 35 minutes Total Time Includes: Examination of the Patient, Discharge Planning, Medication Reconciliation and Communication With Other Providers Discharge Plan Discharge Items Patient Disposition: Home - Self-Care Reason For Visit: ABDOMINAL PAIN,FLANK PAIN Discharge Diagnosis: laparoscopic cholecystectomy Condition on Discharge: Good Activity: As commented below Lifting: No more than 10 pounds Bathing: No limitations Driving/Machine Use: Resume 3 days after discharge Non-emergency contact: Surgeon Call non-emergency contact if: you have any medication questions, your pain is not controlled, you have a fever, your temperature is above 101.5 and your wound has increased redness Follow-up/Referrals: Devyn Lennon DO, FACS [Physician] - (Call to make an appt in 2 weeks) Fran Ramon MD [Primary Care Provider] - 09/19/19 3:30 pm Diet: Regular Addtl Attending Provider Instructions: You can take Tylenol or ibuprofen for pain instead of Percocet Taking Percocet with food should reduce stomach upset Pending Studies at Discharge: Yes Studies:: pathology Stand-Alone Forms: My [employer], Smoking Cessation Medications and DC Order Prescriptions: New oxycodone-acetaminophen [Percocet] 5-325 mg tablet 1 - 2 tab PO Q4H PRN (Reason: pain, initial therapy, max 8 daily) Qty: 10 RF: 0 Continued atorvastatin [Lipitor] 20 mg tablet 20 mg PO HS RF: 0 lisinopril-hydrochlorothiazide [Zestoretic] 10-12.5 mg tablet 1 tab PO QAM RF: 0 cholecalciferol (vitamin D3) [Vitamin D3] 25 mcg (1,000 unit) Tablet 1,000 unit PO QAM RF: 0 Discharge Orders: Discharge Order (Routine); Ordered 09/16/19 Ordered By: Jarret Davidson Admission Data Admit Date/Time: 09/14/19 17:11 Attending Provider: Jarret Davidson Admit Provider: Mikey Ac Primary Care Provider: Fran Ramon Other Providers: Mikey Ac ; Shannan Duval ; Otoniel Medel Other Interventions: Discharge Summary Assessment (RN) Last Done: 09/16/19 16:13 DC Date/Time DO NOT enter until pt leaves facility: 09/16/19 16:30
== END 2019-09-16 16:30 | disposition home or self-care (01) | DRG 418 ==
LOC: 3N 16:55 → ED 16:55 → 3N 22:14